=== PATIENT | female | born 1960 | race Caucasian/White ===

== ENCOUNTER 2016-08-26 10:48 | Day surgery (SDC) | payer MEDICARE ==
[~2016-08-26 10:48] MED LIST: DIPRIVAN 200 MG/20 ML IV ONE; Kenalog-40 IM ONE; Sensorcaine 0.25% 10 ML IJ ONE; Xylocaine 1% Vial 30 ML PF IJ ONE
[2016-08-26 13:26] VITALS: BP 124/72; PULSE 68; O2SAT 99
[2016-08-26] MEDS ORDERED: Lactated Ringers 1,000 ML IV SCH (13:30)
--- NOTE | 2016-08-26 16:36 | XRAY ---
Indication: Left SI injection. Intraoperative fluoroscopy was provided for 25 seconds. Single digital spot image submitted for interpretation demonstrates posterior spinal needle with the tip projecting over the left SI joint. Small amount of contrast injected for needle tip placement. Correlate with intraoperative findings/report.
--- NOTE | 2016-08-26 16:42 | XRAY ---
25 seconds fluoro time in surgery for left SI injection.
== END 2016-08-26 14:56 | disposition home or self-care (01) ==
LOC: SDC-PAIN 10:48
PROVIDERS: ATTEND Pain Medicine Interventional Pain Medicine
DX: M46.1 Sacroiliitis, not elsewhere classified (principal); M54.5 Low back pain; M79.1 Myalgia
CPT/HCPCS: 27096; 72020; 77003; J2001; J2704; J3301; Q9967

== ENCOUNTER 2017-02-21 11:51 | Emergency (ER) | payer MEDICARE ==
--- NOTE | 2017-02-21 13:05 | ERPHSYRPT ---
- History of Present Illness Time Seen by Provider: 02/21/17 12:27 Source: patient Patient Subjective Stated Complaint: PT REPORTS SWELLING TO ANKLES ET HANDS- STATES THAT SHE WOKE UP THIS MORNING WITH EYES SWELLING-PT REPORTS WORKING OUTSIDE-DENIES ITCHING Triage Nursing Assessment: PT PINK WARM ET [id number] NOTED-RESP EASY ET NONLABORED AT THIS TIME-NO BLISTERING NOTED-NO COUGH NOTED Physician History: CC: swelling Hx: 56 y/o patient of Dr Carvalho and Scot Clinton. She has fam hx of lupus but she herself tested negative. She has a few days hx of itching, swelling on face and hands and feet. She had worked in garden. No real rash. She has increased small joint pains especially in the hands. Both 2nd toes have some dark discoloration under the nails without known injury. No fever or chills. No fatigue. No chest or abd pain. Normal urination. No specific rash. Timing/Duration: day(s) (few) Allergies/Adverse Reactions: minocycline Allergy (Verified 02/21/17 12:00) Home Medications: Escitalopram Oxalate [Lexapro] 20 mg PO DAILY 10/21/13 [History] Lansoprazole [Prevacid 24Hr] 30 tab PO DAILY 12/23/15 [History] Alosetron HCl [Lotronex] 0.5 mg PO .UNKONWN 06/11/16 [History] Cetirizine HCl [Zyrtec] 10 mg PO .UNKNOWN 06/11/16 [History] Hydrocodone/APAP 10/325 mg [[place] 10/325 MG Tablet] 1 tab PO Q6HPRN PRN [History] Quetiapine Fumarate 25 mg [Seroquel 25 MG] 50 mg PO BID 06/11/16 [History] Ropinirole HCl 1 mg PO HS 06/11/16 [History] Gabapentin [Neurontin] 100 mg PO UD 02/21/17 [History] Hx Tetanus, Diphtheria Vaccination/Date Given: Yes Hx Influenza Vaccination/Date Given: Yes Hx Pneumococcal Vaccination/Date Given: Yes Immunizations Up to Date: Yes - Review of Systems Constitutional: No Fever, No Chills Eyes: No Symptoms Ears, Nose, & Throat: No Symptoms Respiratory: No Cough, No Dyspnea Cardiac: Edema, No Chest Pain Abdominal/Gastrointestinal: No Abdominal Pain, No Vomiting, No Diarrhea Skin: Pruritis, No Rash Neurological: No Focal Weakness, No Parasthesia All Other Systems: Reviewed and Negative - Past Medical History Pertinent Past Medical History: Yes Neurological History: No Pertinent History ENT History: No Pertinent History Cardiac History: Deep Vein Thrombosis Respiratory History: No Pertinent History Endocrine Medical History: Hypothyroidism Musculoskeletal History: Fibromyalgia, Osteoarthritis GI Medical History: Colitis, Crohns Disease, GERD, Irritable Bowel Psycho-Social History: Anxiety, Bipolar, Depression Other Medical History: "ALOT OF STOMACH PROBLEMS" - Past Surgical History Past Surgical History: Yes Gastrointestinal: Appendectomy, Cholecystectomy Female Surgical History: Hysterectomy Other Surgical History: tonsils - Social History Smoking Status: Never smoker Exposure to second hand smoke: No Drug Use: none Patient Lives Alone: No - Female History Hx Now: No - Nursing Vital Signs Nursing Vital Signs: Initial Vital Signs Temperature 97.7 F 02/21/17 12:00 Pulse Rate 80 02/21/17 12:00 Respiratory Rate 20 02/21/17 12:00 Blood Pressure 119/70 02/21/17 12:00 O2 Sat by Pulse Oximetry 97 02/21/17 12:00 Pain Scale Pain Intensity 4 - Physical Exam General Appearance: alert Eye Exam: PERRL/EOMI Ears, Nose, Throat Exam: moist mucous membranes Neck Exam: normal inspection, non-tender, supple Respiratory Exam: normal breath sounds Cardiovascular Exam: regular rate/rhythm Gastrointestinal/Abdomen Exam: soft, No tenderness, No distention Back Exam: normal inspection Extremity Exam: swelling (some swelling of the face, hands and feet), other ( both second toes have some dark discoloration under nails, there is mild redness periungal to suggest irritation?) Neurologic Exam: alert, oriented x 3, cooperative, No motor deficits Skin Exam: warm, dry SpO2 Interpretation: normal SpO2: 98 Oxygen Delivery: Room Air - Course Nursing assessment & vital signs reviewed: Yes Ordered Tests: Active Orders 24 hr Category Date Time Status Clean Catch Urine Specimen STAT Care 02/21/17 12:34 Active CBC W DIFF Stat Lab 02/21/17 12:58 Completed CMP Stat Lab 02/21/17 13:17 Completed Erythrocyte Sedimentation Rate Stat Lab 02/21/17 12:58 Completed UA W/RFX UR CULTURE Stat Lab 02/21/17 12:34 Completed Lab/Rad Data: Laboratory Result Diagrams 02/21/17 12:58 02/21/17 13:17 Laboratory Results 02/21/17 02/21/17 02/21/17 Range/Units 13:17 12:58 12:34 WBC 4.5 (4.0-10.5) K/mm3 RBC 3.52 L (4.1-5.4) M/mm3 Hgb 10.5 L (12.0-16.0) gm/dl Hct 32.8 L (35-47) % MCV 93.2 (78-100) fl MCH 29.8 (26-32) pg MCHC 32.0 (32-36) g/dl RDW 13.9 (11.5-14.0) % Plt Count 228 (150-450) K/mm3 MPV 10.3 H (6-9.5) fl Gran % 61.2 (36.0-66.0) % Lymphocytes % 28.1 (24.0-44.0) % Monocytes % 6.5 (0.0-12.0) % Eosinophils % 4.0 (0.00-5.0) % Basophils % 0.2 (0.0-0.4) % Basophils # 0.01 (0-0.4) ESR 18 (0-20) mm/hr Sodium 141 (136-145) mEq/L Potassium 4.2 (3.5-5.1) mEq/L Chloride 107 (98-107) mEq/L Carbon Dioxide 25.6 (21-32) mEq/L Anion Gap 12.8 (5-15) MEQ/L BUN 10 (9-20) mg/dL Creatinine 0.75 (0.55-1.30) mg/dl Estimated GFR > 60 ML/MIN Glucose 93 (70-110) MG/DL Calcium 8.4 L (8.5-10.1) mg/dL Total Bilirubin 0.20 (0.2-1.0) mg/dL AST 21 (15-37) U/L ALT 21 (12-78) U/L Alkaline Phosphatase 92 (46-116) U/L Serum Total Protein 5.9 L (6.4-8.2) gm/dL Albumin 3.2 L (3.4-5.0) g/dL Ur Collection Type CLEAN CATCH Urine Color YELLOW (YELLOW) Urine Appearance CLEAR (CLEAR) Urine pH 8.0 (5-6) Ur Specific [place] 1.010 (1.005-1.025) Urine Protein NEGATIVE (Negative) Urine Ketones NEGATIVE (NEGATIVE) Urine Blood NEGATIVE (0-5) Jake/ul Urine Nitrite NEGATIVE (NEGATIVE) Urine Bilirubin NEGATIVE (NEGATIVE) Urine Urobilinogen NORMAL (0-1) mg/dL Ur Leukocyte Esterase NEGATIVE (NEGATIVE) Urine Glucose NEGATIVE (NEGATIVE) mg/dL Specimen Received [id number] 1300 - Progress Progress Note: 02/21/17 14:25 The patient is stable, ambulating in ER. She has labs that are ok. Will try prednisone and atarax. Unsure whether contact derm? Counseled pt/family regarding: lab results, diagnosis, need for follow-up - Departure Time of Disposition: 14:26 Departure Disposition: Home Clinical Impression: Contact dermatitis Qualifiers: Contact dermatitis type: unspecified Contact dermatitis trigger: unspecified trigger Qualified Code(s): L25.9 - Unspecified contact dermatitis, unspecified cause Condition: Stable Critical Care Time: No Referrals: ASHVIN CARVALHO MD [Primary Care Provider] - SCOT CLINTON MD [NON-STAFF PHY W/O PRIVILEGES] - Instructions: Contact Dermatitis Additional Instructions: Rx hydroxyzine- no driving. Rx prednisone. Follow up with Dr Carvalho next week. Prescriptions: Hydroxyzine HCl 25 mg [Atarax 25 mg] 25 mg PO Q6H PRN PRN #20 tablet PRN Reason: Itching Prednisone 10 mg [Deltasone 10 mg] 0 mg PO UD #32 tablet
[2017-02-21 13:08] LABS: Collection Type CLEAN CATCH
[2017-02-21 13:09] LABS: ADD URINE CULTURE? NO (NO); Bilirubin NEGATIVE (NEGATIVE); Blood NEGATIVE Ery/ul (0-5); COMPLETE URINE MICROSCOPIC? NO; Glucose NEGATIVE (NEGATIVE); Leukocyte Esterase NEGATIVE (NEGATIVE)
[2017-02-21 13:20] LABS: BASOPHIL % 0.2 % (0.0-0.4); Granulocytes % 61.2 % (36.0-66.0); Lymphocytes % 28.1 % (24.0-44.0); Mean Cell Volume 93.2 fl (78-100); Mean Corpuscular Hemoglobin 29.8 pg (26-32); Mean Platelet Volume 10.3 fl (6-9.5); Monocytes % 6.5 % (0.0-12.0); Platelet Count 228 K/mm3 (150-450); Red Blood Count 3.52 M/mm3 (4.1-5.4); Red Cell Distribution Width 13.9 % (11.5-14.0); White Blood Count 4.5 K/mm3 (4.0-10.5)
[2017-02-21 13:49] VITALS: BP 120/78
[2017-02-21 13:56] LABS: ALBUMIN 3.2 g/dL (3.4-5.0); ALKALINE PHOSPHATASE 92 U/L (46-116); ANION GAP 12.8 MEQ/L (5-15); BLOOD UREA NITROGEN 10 mg/dL (9-20); CHLORIDE 107 mEq/L (98-107); Carbon Dioxide 25.6 mEq/L (21-32); Glucose 93 MG/DL (70-110); Potassium 4.2 mEq/L (3.5-5.1); SGOT/AST 21 U/L (15-37); SGPT/ALT 21 U/L (12-78); SODIUM 141 mEq/L (136-145); Total Protein 5.9 gm/dL (6.4-8.2)
[2017-02-21 14:10] VITALS: PULSE 67
[2017-02-21 14:24] LABS: Erythrocyte Sedimentation Rate 18 mm/hr (0-20)
[2017-02-21 14:28] VITALS: O2SAT 98
== END 2017-02-21 14:31 | disposition home or self-care (01) ==
LOC: ED 11:51
DX: L25.9 Unspecified contact dermatitis, unspecified cause (principal)
CPT/HCPCS: 36415; 80053; 81002; 85025; 85652; 99283

== ENCOUNTER 2017-11-17 11:11 | Day surgery (SDC) | payer MEDICARE ==
[2017-11-17] MEDS ORDERED: Marcaine 0.5% SDV 10 ML IJ ONE (11:12)
[2017-11-17] MEDS ORDERED: LIDOCAINE HCL 2% 100 MG/5 ML IJ ONE (11:12)
[2017-11-17] MEDS ORDERED: DEXAMETHASONE 10 MG/ML VIAL PF IJ ONE (11:12)
[2017-11-17] MEDS ORDERED: Xylocaine-Mpf 2 ML IJ ONE (11:12)
--- NOTE | 2017-11-17 14:03 | XRAY ---
Indication: Left SI joint injection. Intraoperative fluoroscopy was provided for 18 seconds. 2 digital spot images submitted for interpretation demonstrates single posterior spinal needle tip projecting over the inferior left SI joint. Correlate with intraoperative findings/report.
--- NOTE | 2017-11-17 15:08 | XRAY ---
18 seconds fluoroscopy time in surgery for left SI joint injection.
--- NOTE | 2017-11-18 09:15 | OP ---
DATE OF PROCEDURE: 11/17/2017 1329 SURGEON: Jessica Boles D.O. PREOPERATIVE DIAGNOSES: Degenerative changes of Sacroiliac joint (SIJ), lower back pain. POSTOPERATIVE DIAGNOSES: Degenerative changes of Sacroiliac joint (SIJ), lower back pain. PROCEDURES PERFORMED: Left sacroiliac joint steroid injection under fluoroscopic guidance. DESCRIPTION OF PROCEDURE: The patient was taken to the operating room and laid in the prone position on the table. The skin over the injection site was prepped and draped in sterile fashion. Under fluoroscope bony anatomy at the targeted injection site was visualized. Induction agent was given as per anesthesia while vital signs were monitored. Local anesthetic agent was introduced to anesthetize the skin in the subcutaneous tissue through injection site. Under fluoroscopic guidance a standard spinal needle was advanced into the target SI joint through an oblique approach and 1 cc of preservative Decadron was injected into the SI joint accordingly. While the needle was being removed normal saline was simultaneously infiltrated to avoid sterile needle tract. Skin was cleansed with alcohol and then a bandage was applied. No complications or adverse consequences were observed. The patient was returned to the holding area until stabilized before discharge to home. After the procedure the pain level was 0 out of 10, before the procedure the pain level was 5 out of 10. The patient will be followed up within ten days after the injection for reevaluation.
== END 2017-11-17 14:05 | disposition home or self-care (01) ==
LOC: SDC-PAIN 11:11
PROVIDERS: ATTEND Internal Medicine
DX: M46.1 Sacroiliitis, not elsewhere classified (principal); M51.36 Other intervertebral disc degeneration, lumbar region; M62.838 Other muscle spasm; Z79.891 Long term (current) use of opiate analgesic
CPT/HCPCS: 27096; 72100; 77003; G0260; J1100

== ENCOUNTER 2017-11-21 11:02 | Emergency (ER) | payer MEDICARE ==
[2017-11-21] MEDS ORDERED: Sodium Chloride 0.9% 1000 ML 1,000 ML IV STA (11:41)
[2017-11-21] MEDS ORDERED: Zofran 4 MG/2 ML VIAL IV ONE (11:41)
[2017-11-21] MEDS ORDERED: TORAdol 30 mg Injection IV ONE (11:41)
[2017-11-21] MEDS ORDERED: Sodium Chloride 0.9% 1000 ML 1,000 ML ONE (11:45)
[2017-11-21] MEDS ORDERED: TORAdol 30 mg Injection ONE (11:45)
[2017-11-21] MEDS ORDERED: Zofran 4 MG/2 ML VIAL ONE (11:45)
--- NOTE | 2017-11-21 11:45 | ERPHSYRPT ---
- History of Present Illness Time Seen by Provider: 11/21/17 11:33 Historian: patient Exam Limitations: no limitations Patient Subjective Stated Complaint: patient urinating frequently pressure when urinating has taken 2 boxes over thwe counter AZO since wednesday Triage Nursing Assessment: patent gait is steady, able to ambulate by self, skin warm dry and intact, lung sounds clear, pupils perrla2, pulses equal bialteral radius. no other [id number] noted. back tedner to palpation on back. Physician History: Pt started c/o diffuse lower abdominal pain, radiating to her back, urinary frequency for 4 days. She is nauseated, denies vomiting, fevr, chills, other complaints. Timing/Duration: day(s) (4) Activities at Onset: none Quality: cramping Abdominal Pain Onset Location: periumbilical, suprapubic Pain Radiation: back Severity of Pain-Max: moderate Severity of Pain-Current: moderate Modifying Factors: Improves With: nothing Associated Symptoms: denies symptoms Previous symptoms: no prior history Allergies/Adverse Reactions: minocycline Allergy (Verified 02/21/17 12:00) Home Medications: Lansoprazole [Prevacid 24Hr] 30 tab PO DAILY 12/23/15 [History] Alosetron HCl [Lotronex] 0.5 mg PO .UNKONWN 06/11/16 [History] Cetirizine HCl [Zyrtec] 10 mg PO DAILY PRN PRN 06/11/16 [History] Hydrocodone/APAP 10/325 mg [[place] 10/325 MG Tablet] 1 tab PO Q8HPRN PRN [History] Quetiapine Fumarate 25 mg [Seroquel 25 MG] 50 mg PO BID 06/11/16 [History] Ropinirole HCl 1 mg PO HS 06/11/16 [History] Acyclovir 200 mg Cap [Zovirax 200 mg ] 400 mg PO DAILY 09/14/17 [History] Alendronate Sodium 70 mg [Fosamax 70 MG] 70 mg PO WEEKLY 09/14/17 [History ] Meclizine HCl 25 mg [Antivert 25 mg] 25 mg PO DAILY 09/14/17 [History] Celecoxib [Celebrex] 200 mg PO DAILY 11/09/17 [History] Escitalopram Oxalate [Lexapro] 20 mg PO DAILY 11/09/17 [History] Hx Tetanus, Diphtheria Vaccination/Date Given: Yes Hx Influenza Vaccination/Date Given: Yes Hx Pneumococcal Vaccination/Date Given: Yes Immunizations Up to Date: Yes - Review of Systems Constitutional: No Symptoms Abdominal/Gastrointestinal: Abdominal Pain, Nausea Genitourinary Symptoms: Frequency All Other Systems: Reviewed and Negative - Past Medical History Pertinent Past Medical History: Yes Neurological History: No Pertinent History ENT History: No Pertinent History Cardiac History: Deep Vein Thrombosis Respiratory History: No Pertinent History Endocrine Medical History: Hypothyroidism Musculoskeletal History: Fibromyalgia, Osteoarthritis GI Medical History: Colitis, Crohns Disease, GERD, Irritable Bowel Psycho-Social History: Anxiety, Bipolar, Depression Other Medical History: "ALOT OF STOMACH PROBLEMS" - Past Surgical History Past Surgical History: Yes Gastrointestinal: Appendectomy, Cholecystectomy Female Surgical History: Hysterectomy Other Surgical History: tonsils - Social History Smoking Status: Never smoker Exposure to second hand smoke: No Drug Use: none Patient Lives Alone: Yes - Female History Hx Now: No - Nursing Vital Signs Nursing Vital Signs: Initial Vital Signs Temperature 98.2 F 11/21/17 11:03 Pulse Rate 88 11/21/17 11:03 Respiratory Rate 18 11/21/17 11:03 Blood Pressure 129/63 11/21/17 11:03 O2 Sat by Pulse Oximetry 97 11/21/17 11:03 Pain Scale Pain Intensity 5 - Physical Exam General Appearance: no apparent distress Eye Exam: eyes nml inspection Ears, Nose, Throat Exam: normal ENT inspection Neck Exam: normal inspection, non-tender, supple Respiratory Exam: normal breath sounds, lungs clear, No chest tenderness Cardiovascular Exam: regular rate/rhythm, normal heart sounds, normal peripheral pulses, No murmur Gastrointestinal/Abdomen Exam: soft, normal bowel sounds, tenderness (diffuse), No distention, No mass, No guarding, No ecchymosis, No pulsatile mass, No rebound, No hernia Back Exam: normal inspection, CVA tenderness (bilateral) Extremity Exam: normal inspection Neurologic Exam: alert, oriented x 3 Skin Exam: normal color, warm, dry Lymphatic Exam: No adenopathy SpO2 Interpretation: normal SpO2: 97 Oxygen Delivery: Room Air - Course Nursing assessment & vital signs reviewed: Yes - CT Exams Abdomen/Pelvis CT Interpretation: Negative, Tele-radiologist Report Ordered Tests: Active Orders 24 hr Category Date Time Status Clean Catch Urine Specimen STAT Care 11/21/17 11:24 Active IV Insertion STAT Care 11/21/17 11:24 Active ABDOMEN AND PELVIS W/0 CONTRAS [CT] Stat Exams 11/21/17 11:41 Taken CBC W DIFF Stat Lab 11/21/17 11:30 Completed CMP Stat Lab 11/21/17 11:30 Completed CULTURE,URINE Stat Lab 11/21/17 11:30 Received LIPASE Stat Lab 11/21/17 11:30 Completed Lactic Acid Stat Lab 11/21/17 11:41 Completed UA W/ MICROSCOPIC Stat Lab 11/21/17 11:30 Completed Medication Summary Generic Name Dose Route Start Last Admin Trade Name Freq PRN Reason Stop Dose Admin Ceftriaxone Sodium/Dextrose 1 g in 50 mls @ 100 mls/hr 11/21/17 12:42 Rocephin 1 Gm-D5w 50 Ml Bag IV 11/21/17 13:11 STAT STA Discontinued Medications Generic Name Dose Route Start Last Admin Trade Name Freq PRN Reason Stop Dose Admin Sodium Chloride 1,000 mls @ 999 mls/hr 11/21/17 11:41 11/21/17 11:48 Sodium Chloride 0.9% 1000 Ml IV 11/21/17 12:41 999 mls/hr .Q1H1M STA Administration Sodium Chloride Confirm 11/21/17 11:45 Sodium Chloride 0.9% 1000 Ml Administered 11/21/17 11:46 Dose 1,000 mls @ ud .ROUTE .STK-MED ONE Ketorolac Tromethamine 30 mg 11/21/17 11:41 11/21/17 11:49 Toradol 30 Mg Injection IV 11/21/17 11:42 30 mg STAT ONE Administration Ketorolac Tromethamine Confirm 11/21/17 11:45 Toradol 30 Mg Injection Administered 11/21/17 11:46 Dose 30 mg .ROUTE .STK-MED ONE Ondansetron HCl 4 mg 11/21/17 11:41 11/21/17 11:49 Zofran 4 Mg/2 Ml Vial IV 11/21/17 11:42 4 mg STAT ONE Administration Ondansetron HCl Confirm 11/21/17 11:45 Zofran 4 Mg/2 Ml Vial Administered 11/21/17 11:46 Dose 4 mg .ROUTE .STK-MED ONE Lab/Rad Data: Laboratory Result Diagrams 11/21/17 11:30 11/21/17 11:30 Laboratory Results 11/21/17 11/21/17 11/21/17 Range/Units 11:41 11:30 11:30 WBC 6.5 (4.0-10.5) K/mm3 RBC 4.20 (4.1-5.4) M/mm3 Hgb 12.9 (12.0-16.0) gm/dl Hct 39.1 (35-47) % MCV 93.1 (78-100) fl MCH 30.7 (26-32) pg MCHC 33.0 (32-36) g/dl RDW 12.6 (11.5-14.0) % Plt Count 232 (150-450) K/mm3 MPV 11.8 H (6-9.5) fl Gran % 62.9 (36.0-66.0) % Eos # (Auto) 0.15 (0-0.5) Absolute Lymphs (auto) 1.83 (1.0-4.6) Absolute Monos (auto) 0.41 (0.0-1.3) Lymphocytes % 28.2 (24.0-44.0) % Monocytes % 6.3 (0.0-12.0) % Eosinophils % 2.3 (0.00-5.0) % Basophils % 0.3 (0.0-0.4) % Absolute Granulocytes 4.07 (1.4-6.9) Basophils # 0.02 (0-0.4) Sodium 140 (137-145) mmol/L Potassium 4.4 (3.5-5.1) mmol/L Chloride 105 (98-107) mmol/L Carbon Dioxide 24 (22-30) mmol/L Anion Gap 15.5 H (5-15) MEQ/L BUN 11 (7-17) mg/dL Creatinine 0.66 (0.52-1.04) mg/dL Estimated GFR > 60.0 ML/MIN Glucose 87 (74-106) mg/dL Lactic Acid 0.6 (0.4-2.0) Calcium 9.6 (8.4-10.2) mg/dL Total Bilirubin 0.30 (0.2-1.3) mg/dL AST 27 (14-36) U/L ALT 24 (0-35) U/L Alkaline Phosphatase 95 (38-126) U/L Serum Total Protein 7.4 (6.3-8.2) g/dL Albumin 4.4 (3.5-5.0) g/dL Lipase 60 (23-300) U/L Ur Collection Type Urine Color (YELLOW) Urine Appearance (CLEAR) Urine pH (5-6) Ur Specific [place] (1.005-1.025) Urine Protein (Negative) Urine Ketones (NEGATIVE) Urine Blood (0-5) Jake/ul Urine Nitrite (NEGATIVE) Urine Bilirubin (NEGATIVE) Urine Urobilinogen (0-1) mg/dL Ur Leukocyte Esterase (NEGATIVE) Urine Microscopic RBC (0-2) /HPF Urine Microscopic WBC (0-5) /HPF Ur Epithelial Cells (FEW) /HPF Urine Bacteria (NEGATIVE) /HPF Urine Culture Reflexed (NO) Urine Glucose (NEGATIVE) mg/dL Specimen Received 11/21/17 Range/Units 11:30 WBC (4.0-10.5) K/mm3 RBC (4.1-5.4) M/mm3 Hgb (12.0-16.0) gm/dl Hct (35-47) % MCV (78-100) fl MCH (26-32) pg MCHC (32-36) g/dl RDW (11.5-14.0) % Plt Count (150-450) K/mm3 MPV (6-9.5) fl Gran % (36.0-66.0) % Eos # (Auto) (0-0.5) Absolute Lymphs (auto) (1.0-4.6) Absolute Monos (auto) (0.0-1.3) Lymphocytes % (24.0-44.0) % Monocytes % (0.0-12.0) % Eosinophils % (0.00-5.0) % Basophils % (0.0-0.4) % Absolute Granulocytes (1.4-6.9) Basophils # (0-0.4) Sodium (137-145) mmol/L Potassium (3.5-5.1) mmol/L Chloride (98-107) mmol/L Carbon Dioxide (22-30) mmol/L Anion Gap (5-15) MEQ/L BUN (7-17) mg/dL Creatinine (0.52-1.04) mg/dL Estimated GFR ML/MIN Glucose (74-106) mg/dL Lactic Acid (0.4-2.0) Calcium (8.4-10.2) mg/dL Total Bilirubin (0.2-1.3) mg/dL AST (14-36) U/L ALT (0-35) U/L Alkaline Phosphatase (38-126) U/L Serum Total Protein (6.3-8.2) g/dL Albumin (3.5-5.0) g/dL Lipase (23-300) U/L Ur Collection Type VOID Urine Color YELLOW (YELLOW) Urine Appearance CLOUDY (CLEAR) Urine pH 8.0 (5-6) Ur Specific [place] 1.010 (1.005-1.025) Urine Protein NEGATIVE (Negative) Urine Ketones NEGATIVE (NEGATIVE) Urine Blood 5-10 (0-5) Jake/ul Urine Nitrite POSITIVE (NEGATIVE) Urine Bilirubin NEGATIVE (NEGATIVE) Urine Urobilinogen 4 (0-1) mg/dL Ur Leukocyte Esterase 2+ (NEGATIVE) Urine Microscopic RBC 5-10 (0-2) /HPF Urine Microscopic WBC >100 (0-5) /HPF Ur Epithelial Cells FEW (FEW) /HPF Urine Bacteria MANY (NEGATIVE) /HPF Urine Culture Reflexed YES (NO) Urine Glucose NEGATIVE (NEGATIVE) mg/dL Specimen Received 11/21/17 1120 - Progress Progress: improved Progress Note: 11/21/17 13:06 Patient has been afebrile, stable, did not vomit, feels better, I informed her about the test results, she was given 1g Rocephine iv, and being discharged with instructions to rest x 2-3 days, drink plenty of fluids, follow up with her doctor in 3-4 days, return if severe pain, vomiting or fever> 102 F! She was given Keflex 500mg PO QID x 7 days. - Departure Time of Disposition: 13:07 Departure Disposition: Home Clinical Impression: Pyelonephritis Condition: Stable Critical Care Time: No Referrals: ASHVIN CARVALHO MD [Primary Care Provider] - Additional Instructions: Rest x 3-4 days, drink plenty of fluids, return if severe pain, vomiting, fever > 102 F, follow up with your physician in 3-4 days! Prescriptions: Cephalexin Mh 500 mg [Keflex 500 mg] 500 mg PO Q6H #28 capsule
[2017-11-21 12:00] LABS: BASOPHIL % 0.3 % (0.0-0.4); Basophil (Absolute #) 0.02 (0-0.4); Eosinophil % 2.3 % (0.00-5.0); Eosinophil (Absolute #) 0.15 (0-0.5); Granulocyte Absolute (ANC) 4.07 (1.4-6.9); Granulocytes % 62.9 % (36.0-66.0); Hematocrit 39.1 % (35-47); Hemoglobin 12.9 gm/dl (12.0-16.0); Lymphocyte (Absolute #) 1.83 (1.0-4.6); Lymphocytes % 28.2 % (24.0-44.0); Mean Cell Volume 93.1 fl (78-100); Mean Corpuscular Hemoglobin 30.7 pg (26-32); Mean Platelet Volume 11.8 fl (6-9.5); Monocyte (Absolute #) 0.41 (0.0-1.3); Monocytes % 6.3 % (0.0-12.0); Platelet Count 232 K/mm3 (150-450); Red Cell Distribution Width 12.6 % (11.5-14.0); White Blood Count 6.5 K/mm3 (4.0-10.5)
[2017-11-21 12:01] LABS: ALBUMIN 4.4 g/dL (3.5-5.0); ALKALINE PHOSPHATASE 95 U/L (38-126); ANION GAP 15.5 MEQ/L (5-15); BLOOD UREA NITROGEN 11 mg/dL (7-17); CHLORIDE 105 mmol/L (98-107); Calcium 9.6 mg/dL (8.4-10.2); Carbon Dioxide 24 mmol/L (22-30); Creatinine 1 0.66 mg/dL (0.52-1.04); Glucose 87 mg/dL (74-106); LIPASE 60 U/L (23-300); Potassium 4.4 mmol/L (3.5-5.1); SGOT/AST 27 U/L (14-36); SGPT/ALT 24 U/L (0-35); SODIUM 140 mmol/L (137-145); Total Protein 7.4 g/dL (6.3-8.2)
[2017-11-21 12:12] LABS: Appearance CLOUDY (CLEAR); Bilirubin NEGATIVE (NEGATIVE); Glucose NEGATIVE (NEGATIVE); Ketones NEGATIVE (NEGATIVE); Leukocyte Esterase 2+ (NEGATIVE); Nitrite POSITIVE (NEGATIVE); Protein,Urine Dip NEGATIVE (Negative); Urobilinogen 4 mg/dL (0-1)
[2017-11-21 12:15] LABS: Bacteria MANY /HPF (NEGATIVE); Epithelial Cells FEW /HPF (FEW); WBC >100 /HPF (0-5)
[2017-11-21] MEDS ORDERED: ROCEPHIN 1 Gm-D5w 50 ml Bag** 1 G/50 ML IVPB IV STA (12:42)
[2017-11-21] MEDS ORDERED: ROCEPHIN 1 Gm-D5w 50 ml Bag** 1 G/50 ML IVPB IV ONE (13:06)
[2017-11-21 13:25] VITALS: O2SAT 98
[2017-11-21 13:49] VITALS: BP 156/72; PULSE 72
--- NOTE | 2017-11-21 19:41 | XRAY ---
Indication: Abdomen and low back pain. Multiple contiguous axial images through the abdomen and pelvis without contrast as ordered. Comparison: May 20, 2011. Lung bases are clear. Heart is not enlarged. Noncontrasted stomach and bowel loops appear nonobstructed. Previous reported appendectomy, cholecystectomy, and hysterectomy. No free fluid/air. Remaining liver, pancreas, spleen, adrenal glands, kidneys, ureters, bladder, and aorta appear unremarkable for noncontrast exam. Osseous structures intact. Impression: CT abdomen/pelvis without contrast exam is again negative. Comment: Preliminary interpretation was made by C. No discrepancy. CTDI 10.06
== END 2017-11-21 13:53 | disposition home or self-care (01) ==
LOC: ED 11:02
DX: N12 Tubulo-interstitial nephritis, not specified as acute or chronic (principal); R35.0 Frequency of micturition; R10.30 Lower abdominal pain, unspecified; Z79.899 Other long term (current) drug therapy
CPT/HCPCS: 36000; 36415; 74176; 80053; 81000; 83605; 83690; 85025; 87077; 87086; 87186; 96360; 96365; 96374; 96375; 96376; 99284; J0696; J1885; J2405

== ENCOUNTER 2018-05-20 06:40 | Emergency (ER) | payer MEDICARE ==
--- NOTE | 2018-05-20 07:21 | ERPHSYRPT ---
- History of Present Illness Time Seen by Provider: 05/20/18 07:00 Source: patient Exam Limitations: no limitations Patient Subjective Stated Complaint: Cough Triage Nursing Assessment: Patient ambulated into ER and transferred self into bed. Patient complains of losing her voice Wednesday night then started to cough on Wednesday. Patient states she is having trouble lying flat and causing increased cough and SOB. Patient lungs noted to be clear a/p john. O2 96% on room air. Patient denies pain or discomfort. Physician History: 57 y/o white female presents with first losing voice then coughing with some soa for 3 days. similar sx in past was dx with pneumonia. denies cp and denies fever. pt does not smoke and is not exposed to smoke. pt has nkda. pt not on any medications Timing/Duration: day(s) (3) Cough Quality/Degree: mild, dry cough Possible Cause: frequent episodes Modifying Factors: Improves With: coughing, deep breath Associated Symptoms: cough, shortness of breath, other (laryngitis), No fever, No chills, No chest pain/soreness, No wheezing International travel in last 2 weeks: No Allergies/Adverse Reactions: minocycline Allergy (Verified 05/20/18 06:52) Home Medications: Lansoprazole [Prevacid 24Hr] 30 tab PO DAILY 12/23/15 [History] Alosetron HCl [Lotronex] 0.5 mg PO .UNKONWN 06/11/16 [History] Cetirizine HCl [Zyrtec] 10 mg PO DAILY PRN PRN 06/11/16 [History] Hydrocodone/APAP 10/325 mg [[place] 10/325 MG Tablet] 1 tab PO Q8HPRN PRN [History] Quetiapine Fumarate 25 mg [Seroquel 25 MG] 50 mg PO BID 06/11/16 [History] Ropinirole HCl 1 mg PO HS 06/11/16 [History] Acyclovir 200 mg Cap [Zovirax 200 mg ] 400 mg PO DAILY 09/14/17 [History] Alendronate Sodium 70 mg [Fosamax 70 MG] 70 mg PO WEEKLY 09/14/17 [History ] Celecoxib [Celebrex] 200 mg PO DAILY 11/09/17 [History] Escitalopram Oxalate [Lexapro] 20 mg PO DAILY 11/09/17 [History] Gabapentin [Neurontin] 300 mg PO HS 12/06/17 [History] Hx Tetanus, Diphtheria Vaccination/Date Given: Yes Hx Influenza Vaccination/Date Given: No Hx Pneumococcal Vaccination/Date Given: No Immunizations Up to Date: Yes - Review of Systems Constitutional: No Symptoms, No Fever, No Chills Eyes: No Symptoms, No Eye Pain Ears, Nose, & Throat: No Symptoms, No Ear Pain, No Nose Congestion, No Mouth Pain, No Painful Swallowing Respiratory: Cough, No Dyspnea, No Stridor, No Wheezing Cardiac: No No Symptoms, No Chest Pain, No Palpitations, No Syncope Abdominal/Gastrointestinal: No Symptoms, No Abdominal Pain, No Nausea, No Vomiting, No Diarrhea Genitourinary Symptoms: No Symptoms, No Dysuria, No Hematuria Musculoskeletal: No Symptoms, No Back Pain, No Neck Pain, No Fall, No Injury Skin: No Symptoms Neurological: No Symptoms Psychological: No Symptoms Endocrine: No Symptoms Hematologic/Lymphatic: No Symptoms Immunological/Allergic: No Symptoms All Other Systems: Reviewed and Negative - Past Medical History Pertinent Past Medical History: Yes Neurological History: No Pertinent History ENT History: No Pertinent History Cardiac History: Deep Vein Thrombosis Respiratory History: No Pertinent History Endocrine Medical History: Hypothyroidism Musculoskeletal History: Fibromyalgia, Osteoarthritis GI Medical History: Colitis, Crohns Disease, GERD, Irritable Bowel History: No Pertinent History Psycho-Social History: Anxiety, Bipolar, Depression Female Reproductive Disorders: No Pertinent History Other Medical History: "ALOT OF STOMACH PROBLEMS" - Past Surgical History Past Surgical History: Yes Gastrointestinal: Appendectomy, Cholecystectomy Female Surgical History: Hysterectomy Other Surgical History: tonsils - Social History Smoking Status: Never smoker Exposure to second hand smoke: No Drug Use: none Patient Lives Alone: Yes - Female History Hx Last Menstrual Period: Total Hysterectomy Hx Now: No - Nursing Vital Signs Nursing Vital Signs: Initial Vital Signs Temperature 97.9 F 05/20/18 06:43 Respiratory Rate 18 05/20/18 06:43 O2 Sat by Pulse Oximetry 97 05/20/18 06:43 Pain Scale Pain Intensity 0 - Physical Exam General Appearance: mild distress, alert, anxiety Eye Exam: PERRL/EOMI, eyes nml inspection Ears, Nose, Throat Exam: normal ENT inspection, pharynx normal, moist mucous membranes, other (laryngitis) Neck Exam: normal inspection, non-tender, supple, full range of motion Respiratory Exam: normal breath sounds, lungs clear, airway intact, No chest tenderness, No respiratory distress, No accessory muscle use, No rhonchi, No wheezing, No stridor Cardiovascular Exam: regular rate/rhythm, normal heart sounds, normal peripheral pulses Gastrointestinal/Abdomen Exam: soft, normal bowel sounds, tenderness Pelvic Exam: not done Rectal Exam: not done Back Exam: normal inspection, normal range of motion, No CVA tenderness, No vertebral tenderness Extremity Exam: normal inspection, normal range of motion, pelvis stable Neurologic Exam: alert, oriented x 3, cooperative, fruit and vegetable classer II-XII nml as tested Skin Exam: normal color, warm, dry Lymphatic Exam: No adenopathy SpO2 Interpretation: normal SpO2: 95 Oxygen Delivery: Room Air - Course Nursing assessment & vital signs reviewed: Yes - Progress Progress: unchanged Air Movement: good Blood Culture(s) Obtained: No Antibiotics given: Yes Counseled pt/family regarding: diagnosis, need for follow-up - Departure Time of Disposition: 07:27 Departure Disposition: Home Clinical Impression: Bronchitis, Laryngitis Condition: Stable Critical Care Time: No Referrals: ASHVIN CARVALHO MD [Primary Care Provider] - Additional Instructions: drink plenty of fluids. follow up with primary doctor for further management Prescriptions: Albuterol 8 gm Mdi Hfa [Ventolin Hfa MDI] 8 gm IH Q4H #1 [email or web address] Azithromycin 250 mg [Zithromax 250 MG TABLET] 250 mg PO ZPACK #6 tablet Hydrocodone Bit/Acetaminophen [Hydrocodone-Acetaminophen Soln] 10 ml PO Q6H # 120 ml Prednisone 10 mg [Deltasone 10 mg] 10 mg PO TID #12 tablet
[2018-05-20] MEDS ORDERED: solu-MEDROL 125 MG IM ONE (07:32)
[2018-05-20] MEDS ORDERED: Rocephin 1000 MG INJ IM ONE (07:32)
[2018-05-20] MEDS ORDERED: Rocephin 1000 MG INJ ONE (07:44)
[2018-05-20] MEDS ORDERED: XYLOCAINE 1% HCL 20 ML MDV ONE (07:44)
[2018-05-20] MEDS ORDERED: solu-MEDROL 125 MG ONE (07:44)
[2018-05-20 08:01] VITALS: BP 132/74; PULSE 68; O2SAT 98
== END 2018-05-20 08:24 | disposition home or self-care (01) ==
LOC: ED 06:40
DX: J20.9 Acute bronchitis, unspecified (principal); J04.0 Acute laryngitis; Z79.899 Other long term (current) drug therapy; Z79.891 Long term (current) use of opiate analgesic
CPT/HCPCS: 96372; 99284; J0696; J2930

== ENCOUNTER 2018-05-24 09:27 | Emergency (ER) | payer MEDICARE ==
--- NOTE | 2018-05-24 09:57 | ERPHSYRPT ---
- History of Present Illness Time Seen by Provider: 05/24/18 09:45 Source: patient Physician History: 57 y/o right handed white female presents with less than 24 hour right wrist pain. no fall or injury. however, pt did begin painting her toney at home last pm and kept painting despite pain. pt did not take anything to help her pain. pt has norco at home. she just completed course of steroids for tx of bronchitis. Occurred: yesterday Method of Injury: other (overuse painting) Quality: aching Severity of Pain-Max: mild Severity of Pain-Current: mild Extremities Pain Location: wrist: right Modifying Factors: Improves With: movement (worsens) Allergies/Adverse Reactions: minocycline Allergy (Verified 05/24/18 09:39) Home Medications: Lansoprazole [Prevacid 24Hr] 30 tab PO DAILY 12/23/15 [History] Alosetron HCl [Lotronex] 0.5 mg PO .UNKONWN 06/11/16 [History] Cetirizine HCl [Zyrtec] 10 mg PO DAILY PRN PRN 06/11/16 [History] Hydrocodone/APAP 10/325 mg [[place] 10/325 MG Tablet] 1 tab PO Q8HPRN PRN [History] Quetiapine Fumarate 25 mg [Seroquel 25 MG] 50 mg PO BID 06/11/16 [History] Ropinirole HCl 1 mg PO HS 06/11/16 [History] Acyclovir 200 mg Cap [Zovirax 200 mg ] 400 mg PO DAILY 09/14/17 [History] Alendronate Sodium 70 mg [Fosamax 70 MG] 70 mg PO WEEKLY 09/14/17 [History ] Celecoxib [Celebrex] 200 mg PO DAILY 11/09/17 [History] Escitalopram Oxalate [Lexapro] 20 mg PO DAILY 11/09/17 [History] Gabapentin [Neurontin] 300 mg PO HS 12/06/17 [History] Hx Tetanus, Diphtheria Vaccination/Date Given: Yes Hx Influenza Vaccination/Date Given: No Hx Pneumococcal Vaccination/Date Given: No - Review of Systems Constitutional: No Symptoms Eyes: No Symptoms Ears, Nose, & Throat: No Symptoms Respiratory: No Symptoms Cardiac: No Symptoms Abdominal/Gastrointestinal: No Symptoms Genitourinary Symptoms: No Symptoms Musculoskeletal: Other (right wrist pain with abduction) Skin: No Symptoms Neurological: No Symptoms Psychological: No Symptoms Endocrine: No Symptoms Hematologic/Lymphatic: No Symptoms Immunological/Allergic: No Symptoms All Other Systems: Reviewed and Negative - Past Medical History Pertinent Past Medical History: Yes Neurological History: No Pertinent History ENT History: No Pertinent History Cardiac History: Deep Vein Thrombosis Respiratory History: No Pertinent History Endocrine Medical History: Hypothyroidism Musculoskeletal History: Fibromyalgia, Osteoarthritis GI Medical History: Colitis, Crohns Disease, GERD, Irritable Bowel History: No Pertinent History Psycho-Social History: Anxiety, Bipolar, Depression Female Reproductive Disorders: No Pertinent History Other Medical History: "ALOT OF STOMACH PROBLEMS" - Past Surgical History Past Surgical History: Yes Gastrointestinal: Appendectomy, Cholecystectomy Female Surgical History: Hysterectomy Other Surgical History: tonsils - Social History Smoking Status: Never smoker Exposure to second hand smoke: No Drug Use: none Patient Lives Alone: Yes - Nursing Vital Signs Nursing Vital Signs: Initial Vital Signs Temperature 98 F 05/24/18 09:34 Pulse Rate 80 05/24/18 09:34 Respiratory Rate 16 05/24/18 09:34 Blood Pressure 120/73 05/24/18 09:34 O2 Sat by Pulse Oximetry 98 05/24/18 09:34 Pain Scale Pain Intensity 8 - Physical Exam General Appearance: no apparent distress, alert, anxiety Eyes, Ears, Nose, Throat Exam: normal ENT inspection, moist mucous membranes Neck Exam: normal inspection, non-tender, supple, full range of motion Cardiovascular/Respiratory Exam: chest non-tender, normal breath sounds Abdominal Exam: non-tender, soft Back Exam: normal inspection, normal range of motion, No CVA tenderness, No vertebral tenderness Shoulder Exam: normal inspection, non-tender, no evidence of injury, normal ROM Elbow/Forearm Exam: normal inspection, non-tender, no evidence of injury, normal ROM Wrist Exam: normal inspection, no evidence of injury, normal ROM, bone tenderness (right wrist), soft tissue tenderness (right wrist) Hand Exam: normal inspection, non-tender, no evidence of injury, normal ROM Neuro/Tendon Exam: normal sensation, normal motor functions, normal tendon functions Mental Status Exam: alert, oriented x 3, cooperative Skin Exam: normal color, warm, dry SpO2 Interpretation: normal Oxygen Delivery: Room Air - Course Nursing assessment & vital signs reviewed: Yes Ordered Tests: Active Orders 24 hr Category Date Time Status WRIST (MIN 3 VIEWS) Stat Exams 05/24/18 09:59 Taken Lab/Rad Data: wrist xray- no acute fx or dislocation - Progress Progress: unchanged, pain not gone completely Counseled pt/family regarding: diagnosis, need for follow-up, rad results - Departure Time of Disposition: 10:27 Departure Disposition: Home Clinical Impression: Right wrist sprain Condition: Stable Critical Care Time: No Referrals: ASHVIN CARVALHO MD [Primary Care Provider] - Additional Instructions: wear splint for comfort. rest for 48 hours. ice pack to site 3 times daily for 48 hours. use your hydrocodone as prescribed. add ibuprofen for pain. follow up with primary doctor for persistent pain
[2018-05-24 10:19] VITALS: BP 120/73; PULSE 80; O2SAT 98
--- NOTE | 2018-05-24 10:29 | XRAY ---
Indication: Pain after painting. Comparison: None 3 views of the right wrist obtained. No bony, articular, or soft tissue abnormalities.
== END 2018-05-24 10:46 | disposition home or self-care (01) ==
LOC: ED 09:27
DX: S63.501A Unspecified sprain of right wrist, initial encounter (principal); X50.0XXA Overexertion from strenuous movement or load, initial encounter
CPT/HCPCS: 73110; 99283; A4570

== ENCOUNTER 2018-09-21 11:53 | Day surgery (SDC) | payer MEDICARE ==
[2018-09-21] MEDS ORDERED: Depo-Medrol 40 MG/ML IM ONE (11:54)
[2018-09-21] MEDS ORDERED: Sodium Chloride 0.9(Preservative Free) 10 ML IJ ONE (11:54)
[2018-09-21] MEDS ORDERED: Xylocaine 1% Vial 30 ML PF IJ ONE (11:54)
[2018-09-21] MEDS ORDERED: DIPRIVAN 200 MG/20 ML IV ONE (11:54)
[2018-09-21] MEDS ORDERED: Ketamine HCl 50 MG/ML IV ONE (11:54)
[2018-09-21] MEDS ORDERED: Lactated Ringers 1,000 ML IV ONE (14:31)
--- NOTE | 2018-09-21 15:02 | XRAY ---
Indication: L4-L5 ILIANA. Intraoperative fluoroscopy was provided for 13 seconds. 2 digital spot images submitted for interpretation demonstrates midline posterior spinal needle tip approximately L4-L5 interspace level. Correlate with intraoperative findings/report.
--- NOTE | 2018-09-21 15:05 | XRAY ---
13 seconds of fluoroscopy was used in surgery for L4-5 ILIANA.
== END 2018-09-21 14:15 | disposition home or self-care (01) ==
LOC: SDC-PAIN 11:53
PROVIDERS: ATTEND Psychiatry & Neurology Pain Medicine
DX: M54.16 Radiculopathy, lumbar region (principal); Z79.899 Other long term (current) drug therapy
CPT/HCPCS: 62323; 72020; 77003; J1030; J2001; J2704; Q9966

== ENCOUNTER 2018-12-17 22:33 | Emergency (ER) | payer MEDICARE ==
[2018-12-17] MEDS ORDERED: Sodium Chloride 0.9% 1000 ML 1,000 ML IV STA (23:00)
[2018-12-17] MEDS ORDERED: Zofran 4 MG/2 ML VIAL IV ONE (23:00)
[2018-12-17] MEDS ORDERED: MORPHINE SULFATE 4 MG INJ IV ONE (23:01)
--- NOTE | 2018-12-17 23:07 | ERPHSYRPT ---
- History of Present Illness Time Seen by Provider: 12/17/18 23:03 Source: patient Exam Limitations: no limitations Patient Subjective Stated Complaint: pt reports she spent a lot of time in the sun the last couple days, says her boss thought she had a heat stroke. reports yesterday afternoon she began to have left side facial numbness and a headache. pt reports nausea vomiting starting today. pt reports it hurts to open her eyes. 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 Physician History: 58-year-old white female arrives with complaint of general myalgias headache vomiting symptoms since yesterday. She apparently has been spending a lot of time outside in the heat she is she states her son thought she was having a sunstroke yesterday. Today she was having some facial numbness several hours ago. Patient is not having trouble speaking or moving her extremities. Past medical history includes DVT, hypothyroidism, fibromyalgia, osteoarthritis , colitis, Crohn's, GERD, or double bowel, anxiety, bipolar depression, stomach problems. Patient does have a history of chronic pain is on Collison 10/325 chronically she states she last took this this morning. Past surgical history includes appendectomy cholecystectomy, hysterectomy, tonsils Timing/Duration: yesterday Severity: moderate Modifying Factors: Worsens With: eating, immobilization, medication, movement, rest, acetaminophen, ibuprofen, nothing Associated Symptoms: nausea, vomiting, headaches, malaise, No abdominal pain, No shortness of breath, No heartburn, No diaphoresis, No cough, No chills, No chest pain, No fever, No loss of appetite, No rash, No syncope, No seizure, No weakness Allergies/Adverse Reactions: minocycline Allergy (Verified 12/17/18 22:58) Home Medications: Lansoprazole [Prevacid 24Hr] 30 tab PO DAILY 12/23/15 [History] Alosetron HCl [Lotronex] 0.5 mg PO .UNKONWN 06/11/16 [History] Cetirizine HCl [Zyrtec] 10 mg PO DAILY PRN PRN 06/11/16 [History] Hydrocodone/APAP 10/325 mg [Collison 10/325 MG Tablet] 1 tab PO Q8HPRN PRN [History] Quetiapine Fumarate 25 mg [Seroquel 25 MG] 50 mg PO BID 06/11/16 [History] Ropinirole HCl 1 mg PO HS 06/11/16 [History] Acyclovir 200 mg Cap [Zovirax 200 mg ] 400 mg PO DAILY 09/14/17 [History] Alendronate Sodium 70 mg [Fosamax 70 MG] 70 mg PO WEEKLY 09/14/17 [History ] Celecoxib [Celebrex] 200 mg PO DAILY 11/09/17 [History] Escitalopram Oxalate [Lexapro] 20 mg PO DAILY 11/09/17 [History] Hx Tetanus, Diphtheria Vaccination/Date Given: No Hx Influenza Vaccination/Date Given: No Hx Pneumococcal Vaccination/Date Given: No Immunizations Up to Date: Yes - Review of Systems Constitutional: No Fever, No Chills Eyes: No Symptoms Ears, Nose, & Throat: No Symptoms Respiratory: No Cough, No Dyspnea Cardiac: No Chest Pain, No Edema, No Syncope Abdominal/Gastrointestinal: No Abdominal Pain, No Nausea, No Vomiting, No Diarrhea Genitourinary Symptoms: No Dysuria Musculoskeletal: Myalgias Skin: No Rash Neurological: Headache, Other (paresthesia to the face several hours ago) Psychological: No Symptoms Endocrine: No Symptoms All Other Systems: Reviewed and Negative - Past Medical History Pertinent Past Medical History: Yes Neurological History: No Pertinent History ENT History: No Pertinent History Cardiac History: Deep Vein Thrombosis Respiratory History: No Pertinent History Endocrine Medical History: Hypothyroidism Musculoskeletal History: Fibromyalgia, Osteoarthritis GI Medical History: Colitis, Crohns Disease, GERD, Irritable Bowel History: No Pertinent History Psycho-Social History: Anxiety, Bipolar, Depression Female Reproductive Disorders: No Pertinent History Other Medical History: "ALOT OF STOMACH PROBLEMS" - Past Surgical History Past Surgical History: Yes Gastrointestinal: Appendectomy, Cholecystectomy Female Surgical History: Hysterectomy Other Surgical History: tonsils - Social History Smoking Status: Never smoker Exposure to second hand smoke: No Drug Use: none Patient Lives Alone: No - Female History Hx Now: No - Nursing Vital Signs Nursing Vital Signs: Initial Vital Signs Temperature 99.4 F 12/17/18 22:37 Pulse Rate 102 H 12/17/18 22:37 Respiratory Rate 20 12/17/18 22:37 Blood Pressure 146/80 12/17/18 22:37 O2 Sat by Pulse Oximetry 98 12/17/18 22:37 Pain Scale Pain Intensity 3 - Physical Exam General Appearance: moderate distress, alert Eye Exam: PERRL/EOMI, eyes nml inspection Ears, Nose, Throat Exam: normal ENT inspection, TMs normal, pharynx normal, moist mucous membranes Neck Exam: normal inspection, non-tender, supple, full range of motion Respiratory Exam: normal breath sounds, lungs clear, No respiratory distress Cardiovascular Exam: regular rate/rhythm, normal heart sounds, normal peripheral pulses, capillary refill <2 sec Gastrointestinal/Abdomen Exam: soft, normal bowel sounds, No tenderness, No mass Back Exam: normal inspection, normal range of motion, No CVA tenderness, No vertebral tenderness Extremity Exam: normal inspection, normal range of motion, pelvis stable Neurologic Exam: alert, oriented x 3, cooperative, teacher dramatics II-XII nml as tested, normal mood/affect, nml cerebellar function, nml station & gait, sensation nml, No motor deficits Skin Exam: normal color, warm, dry, No rash SpO2 Interpretation: normal (98%) SpO2: 98 O2 Delivery: Room Air - Course Nursing assessment & vital signs reviewed: Yes EKG Interpreted by Me: RATE (98 bpm), Sinus Rhythm, NORMAL AXIS, Other (EKG: Sinus rhythm, 98 beats per minute, normal axis,no acute ST or T wave changes, normal EKG) - CT Exams Head CT Interpretation: Tele-radiologist Report (head CT: Impression: No acute intracranial abnormality. No significant change from previous study.( October)) Ordered Tests: Active Orders 24 hr Category Date Time Status EKG-ER Only STAT Care 12/17/18 23:00 Active IV Insertion STAT Care 12/17/18 23:00 Active CHEST 1 VIEW (PORTABLE) Stat Exams 12/17/18 23:08 Taken HEAD WITHOUT CONTRAST [CT] Stat Exams 12/17/18 23:01 Taken AMYLASE Stat Lab 12/17/18 23:07 Completed CBC W DIFF Stat Lab 12/17/18 23:07 Completed CMP Stat Lab 12/17/18 23:07 Completed ETHYL ALCOHOL Stat Lab 12/17/18 23:07 Completed LIPASE Stat Lab 12/17/18 23:07 Completed TROPONIN Q3H Lab 12/17/18 23:07 Completed TROPONIN Q3H Lab 12/18/18 02:00 Ordered TROPONIN Q3H Lab 12/18/18 05:00 Ordered TROPONIN Q3H Lab 12/18/18 08:00 Ordered TROPONIN Q3H Lab 12/18/18 11:00 Ordered UA W/RFX UR CULTURE Stat Lab 12/18/18 00:40 Completed Urine Triage Profile Stat Lab 12/18/18 00:40 Completed Medication Summary Discontinued Medications Generic Name Dose Route Start Last Admin Trade Name Marline PRN Reason Stop Dose Admin Sodium Chloride 1,000 mls @ 999 mls/hr 12/17/18 23:00 12/18/18 01:34 Sodium Chloride 0.9% 1000 Ml IV 12/18/18 00:00 Infused .Q1H1M STA Infusion Sodium Chloride Confirm 12/17/18 23:14 Sodium Chloride 0.9% 1000 Ml Administered 12/17/18 23:15 Dose 1,000 mls @ ud .ROUTE .STK-MED ONE Sodium Chloride 1,000 mls @ 999 mls/hr 12/18/18 01:09 12/18/18 01:16 Sodium Chloride 0.9% 1000 Ml IV 12/18/18 02:09 999 mls/hr .Q1H1M STA Administration Sodium Chloride Confirm 12/18/18 01:15 Sodium Chloride 0.9% 1000 Ml Administered 12/18/18 01:16 Dose 1,000 mls @ ud .ROUTE .STK-MED ONE Morphine Sulfate 4 mg 12/17/18 23:01 12/17/18 23:25 Morphine Sulfate 4 Mg Inj IV 12/17/18 23:02 4 mg STAT ONE Administration Morphine Sulfate Confirm 12/17/18 23:14 Morphine Sulfate 4 Mg Inj Administered 12/17/18 23:15 Dose 4 mg .ROUTE .STK-MED ONE Ondansetron HCl 4 mg 12/17/18 23:00 12/17/18 23:15 Zofran 4 Mg/2 Ml Vial IV 12/17/18 23:01 4 mg STAT ONE Administration Ondansetron HCl Confirm 12/17/18 23:14 Zofran 4 Mg/2 Ml Vial Administered 12/17/18 23:15 Dose 4 mg .ROUTE .STK-MED ONE Lab/Rad Data: Laboratory Result Diagrams 12/17/18 23:07 12/17/18 23:07 Laboratory Results 12/18/18 12/18/18 12/17/18 Range/Units 00:40 00:40 23:07 WBC (4.0-10.5) K/mm3 RBC (4.1-5.4) M/mm3 Hgb (12.0-16.0) gm/dl Hct (35-47) % MCV (78-100) fl MCH (26-32) pg MCHC (32-36) g/dl RDW (11.5-14.0) % Plt Count (150-450) K/mm3 MPV (6-9.5) fl Gran % (36.0-66.0) % Eos # (Auto) (0-0.5) Absolute Lymphs (auto) (1.0-4.6) Absolute Monos (auto) (0.0-1.3) Lymphocytes % (24.0-44.0) % Monocytes % (0.0-12.0) % Eosinophils % (0.00-5.0) % Basophils % (0.0-0.4) % Absolute Granulocytes (1.4-6.9) Basophils # (0-0.4) Sodium (137-145) mmol/L Potassium (3.5-5.1) mmol/L Chloride (98-107) mmol/L Carbon Dioxide (22-30) mmol/L Anion Gap (5-15) MEQ/L BUN (7-17) mg/dL Creatinine (0.52-1.04) mg/dL Estimated GFR ML/MIN Glucose (74-106) mg/dL Calcium (8.4-10.2) mg/dL Total Bilirubin (0.2-1.3) mg/dL AST (14-36) U/L ALT (0-35) U/L Alkaline Phosphatase (38-126) U/L Troponin I (0.000-0.034) ng/mL Serum Total Protein (6.3-8.2) g/dL Albumin (3.5-5.0) g/dL Amylase (30-110) U/L Lipase (23-300) U/L Urine Color YELLOW (YELLOW) Urine Appearance CLEAR (CLEAR) Urine pH 9.0 (5-6) Ur Specific [place] 1.011 (1.005-1.025) Urine Protein NEGATIVE (Negative) Urine Ketones NEGATIVE (NEGATIVE) Urine Blood NEGATIVE (0-5) Jake/ul Urine Nitrite NEGATIVE (NEGATIVE) Urine Bilirubin NEGATIVE (NEGATIVE) Urine Urobilinogen NEGATIVE (0-1) mg/dL Ur Leukocyte Esterase NEGATIVE (NEGATIVE) Urine WBC (Auto) NONE (0-5) /HPF Urine RBC (Auto) 0-2 (0-2) /HPF U Epithel Cells (Auto) NONE (FEW) /HPF Urine Bacteria (Auto) NONE SEEN (NEGATIVE) /HPF Urine Culture Reflexed NO (NO) Urine Glucose NEGATIVE (NEGATIVE) mg/dL Urine Opiates Level POSITIVE (NEGATIVE) Ur Methadone NEGATIVE (NEGATIVE) Urine Barbiturates NEGATIVE (NEGATIVE) Ur Phencyclidine (PCP) NEGATIVE (NEGATIVE) Urine Amphetamine NEGATIVE (NEGATIVE) U Benzodiazepine Level NEGATIVE (NEGATIVE) Urine Cocaine NEGATIVE (NEGATIVE) Urine Marijuana (THC) NEGATIVE (NEGATIVE) Ethyl Alcohol < 10 (0-10) mg/dL 12/17/18 12/17/18 12/17/18 Range/Units 23:07 23:07 23:07 WBC 6.6 (4.0-10.5) K/mm3 RBC 3.93 L (4.1-5.4) M/mm3 Hgb 12.0 (12.0-16.0) gm/dl Hct 36.1 (35-47) % MCV 91.9 (78-100) fl MCH 30.5 (26-32) pg MCHC 33.2 (32-36) g/dl RDW 13.2 (11.5-14.0) % Plt Count 252 (150-450) K/mm3 MPV 10.2 H (6-9.5) fl Gran % 72.7 H (36.0-66.0) % Eos # (Auto) 0.02 (0-0.5) Absolute Lymphs (auto) 1.43 (1.0-4.6) Absolute Monos (auto) 0.32 (0.0-1.3) Lymphocytes % 21.8 L (24.0-44.0) % Monocytes % 4.9 (0.0-12.0) % Eosinophils % 0.3 (0.00-5.0) % Basophils % 0.3 (0.0-0.4) % Absolute Granulocytes 4.78 (1.4-6.9) Basophils # 0.02 (0-0.4) Sodium 139 (137-145) mmol/L Potassium 3.8 (3.5-5.1) mmol/L Chloride 106 (98-107) mmol/L Carbon Dioxide 21 L (22-30) mmol/L Anion Gap 15.8 H (5-15) MEQ/L BUN 8 (7-17) mg/dL Creatinine 0.67 (0.52-1.04) mg/dL Estimated GFR > 60.0 ML/MIN Glucose 88 (74-106) mg/dL Calcium 9.7 (8.4-10.2) mg/dL Total Bilirubin 0.30 (0.2-1.3) mg/dL AST 25 (14-36) U/L ALT 17 (0-35) U/L Alkaline Phosphatase 102 (38-126) U/L Troponin I < 0.012 (0.000-0.034) ng/mL Serum Total Protein 7.2 (6.3-8.2) g/dL Albumin 4.2 (3.5-5.0) g/dL Amylase 81 (30-110) U/L Lipase 47 (23-300) U/L Urine Color (YELLOW) Urine Appearance (CLEAR) Urine pH (5-6) Ur Specific [place] (1.005-1.025) Urine Protein (Negative) Urine Ketones (NEGATIVE) Urine Blood (0-5) Jake/ul Urine Nitrite (NEGATIVE) Urine Bilirubin (NEGATIVE) Urine Urobilinogen (0-1) mg/dL Ur Leukocyte Esterase (NEGATIVE) Urine WBC (Auto) (0-5) /HPF Urine RBC (Auto) (0-2) /HPF U Epithel Cells (Auto) (FEW) /HPF Urine Bacteria (Auto) (NEGATIVE) /HPF Urine Culture Reflexed (NO) Urine Glucose (NEGATIVE) mg/dL Urine Opiates Level (NEGATIVE) Ur Methadone (NEGATIVE) Urine Barbiturates (NEGATIVE) Ur Phencyclidine (PCP) (NEGATIVE) Urine Amphetamine (NEGATIVE) U Benzodiazepine Level (NEGATIVE) Urine Cocaine (NEGATIVE) Urine Marijuana (THC) (NEGATIVE) Ethyl Alcohol (0-10) mg/dL - Progress Progress: improved Progress Note: 12/18/18 01:10 This is a 58-year-old white female with history of DVT, hypothyroidism, fibromyalgia, osteoarthritis, colitis, Crohn's, GERD, irritable bowel, anxiety, bipolar depression Patient arrives with complaint of a headache she states that she was out in the sun for a couple of days she started having a headache had nausea and vomiting patient has no focal symptoms she has no speech problems she did state she had the fairly severe pain in her head. Patient does have a history of chronic pain she is on Collison 10/325 prescribed regularly by her care pain control physician Patient with stable vital signs Patient with a white count of 6.6 hemoglobin 12.0 hematocrit 36.1 platelets are 252 urinalysis is unremarkable urine drug screen is positive for opiates otherwise negative troponin is within normal limits patient's blood alcohol level is less than 10 Patient's chemistry sodium 139 potassium 3.8 chloride 106 bicarbonate 21 BUN 8 creatinine 0.67 glucose is 88 patient with a slightly elevated anion gap of 15.8 EKG sinus rhythm 98 beats per minute normal axis no acute ST or T wave changes are noted Patient's chest x-ray unremarkable. Patient is feeling better after 1 L of normal saline 4 mg of morphine and 4 mg of Zofran IV. Will plan on giving the patient a second liter of normal saline and discharging patient. Impression headache. Mild dehydration. - Departure Departure Disposition: Home Clinical Impression: Mild dehydration Headache Qualifiers: Headache type: unspecified Headache chronicity pattern: unspecified pattern Intractability: not intractable Qualified Code(s): R51 - Headache Condition: Fair Critical Care Time: No Referrals: ASHVIN CARVALHO MD [Primary Care Provider] - Additional Instructions: Return home. Rest, plenty of fluids. Collison as prescribed by your family doctor as needed for pain. Followup with your family DrPraveena. Return for acute distress or for severe symptoms.
[2018-12-17 23:11] LABS: BASOPHIL % 0.3 % (0.0-0.4); Basophil (Absolute #) 0.02 (0-0.4); Eosinophil % 0.3 % (0.00-5.0); Eosinophil (Absolute #) 0.02 (0-0.5); Granulocyte Absolute (ANC) 4.78 (1.4-6.9); Granulocytes % 72.7 % (36.0-66.0); Hematocrit 36.1 % (35-47); Lymphocyte (Absolute #) 1.43 (1.0-4.6); Lymphocytes % 21.8 % (24.0-44.0); Mean Cell Volume 91.9 fl (78-100); Mean Corpuscular Hemoglobin 30.5 pg (26-32); Mean Corpuscular Hgb Concent. 33.2 g/dl (32-36); Mean Platelet Volume 10.2 fl (6-9.5); Monocyte (Absolute #) 0.32 (0.0-1.3); Monocytes % 4.9 % (0.0-12.0); Platelet Count 252 K/mm3 (150-450); Red Blood Count 3.93 M/mm3 (4.1-5.4); Red Cell Distribution Width 13.2 % (11.5-14.0); White Blood Count 6.6 K/mm3 (4.0-10.5)
[2018-12-17] MEDS ORDERED: MORPHINE SULFATE 4 MG INJ ONE (23:14)
[2018-12-17] MEDS ORDERED: Zofran 4 MG/2 ML VIAL ONE (23:14)
[2018-12-17] MEDS ORDERED: Sodium Chloride 0.9% 1000 ML 1,000 ML ONE (23:14)
[2018-12-17 23:19] LABS: ALBUMIN 4.2 g/dL (3.5-5.0); ALKALINE PHOSPHATASE 102 U/L (38-126); AMYLASE 81 U/L (30-110); ANION GAP 15.8 MEQ/L (5-15); BLOOD UREA NITROGEN 8 mg/dL (7-17); CHLORIDE 106 mmol/L (98-107); Calcium 9.7 mg/dL (8.4-10.2); Carbon Dioxide 21 mmol/L (22-30); Creatinine 1 0.67 mg/dL (0.52-1.04); Glucose 88 mg/dL (74-106); LIPASE 47 U/L (23-300); Potassium 3.8 mmol/L (3.5-5.1); SGOT/AST 25 U/L (14-36); SGPT/ALT 17 U/L (0-35); SODIUM 139 mmol/L (137-145); Total Protein 7.2 g/dL (6.3-8.2)
[2018-12-18 00:48] LABS: Appearance CLEAR (CLEAR); Bilirubin NEGATIVE (NEGATIVE); Blood NEGATIVE Ery/ul (0-5); Glucose NEGATIVE (NEGATIVE); Ketones NEGATIVE (NEGATIVE); Leukocyte Esterase NEGATIVE (NEGATIVE); Nitrite NEGATIVE (NEGATIVE); Protein,Urine Dip NEGATIVE (Negative); RBC 0-2 /HPF (0-2); Specific Gravity 1.011 (1.005-1.025); Urobilinogen NEGATIVE mg/dL (0-1)
[2018-12-18 00:55] LABS: Amphetamine,Urine NEGATIVE (NEGATIVE); Bacteria NONE SEEN /HPF (NEGATIVE); Barbiturate,Urine NEGATIVE (NEGATIVE); Benzodiazepine,Urine NEGATIVE (NEGATIVE); Cocaine,Urine NEGATIVE (NEGATIVE); Methadone,Urine NEGATIVE (NEGATIVE); Opiate,Urine POSITIVE (NEGATIVE); PCP,Urine NEGATIVE (NEGATIVE); THC,Urine NEGATIVE (NEGATIVE)
[2018-12-18 01:06] VITALS: O2SAT 98
[2018-12-18] MEDS ORDERED: Sodium Chloride 0.9% 1000 ML 1,000 ML IV STA (01:09)
[2018-12-18] MEDS ORDERED: Sodium Chloride 0.9% 1000 ML 1,000 ML ONE (01:15)
[2018-12-18 02:15] VITALS: BP 153/70; PULSE 85
--- NOTE | 2018-12-18 09:49 | XRAY ---
Indication: Short of breath. Comparison: August 23, 2018. Portable apical lordotic chest underinflated without focal infiltrate, consolidation, or large effusion. Heart is not enlarged. Bony thorax intact again with mild osteopenia and old right rib fractures. Impression: Nonacute underinflated chest.
--- NOTE | 2018-12-18 09:53 | XRAY ---
Indication: Headache. General myalgia. Chronic pain syndrome. Multiple contiguous axial images obtained through the head without contrast. Comparison: November 26, 2014. Again normal appearing brain parenchyma, ventricles, and bony calvarium. Mild mucosal thickening of both ethmoid sinuses. Sub-centimeter right sphenoid sinus polyp/retention cyst. Mastoid air cells are clear. Impression: Paranasal sinus disease as detailed. Remaining CT head without contrast exam is normal. Comment: Preliminary interpretation was made by [facility]. No critical discrepancy. CTDI 67.99
== END 2018-12-18 02:22 | disposition home or self-care (01) ==
LOC: ED 22:33
DX: R51 Headache (principal); E86.0 Dehydration; R11.2 Nausea with vomiting, unspecified; R53.81 Other malaise; Z79.899 Other long term (current) drug therapy; E03.9 Hypothyroidism, unspecified; Z86.718 Personal history of other venous thrombosis and embolism
CPT/HCPCS: 36000; 36415; 70450; 71045; 80053; 80307; 81001; 82150; 83690; 84484; 85025; 93005; 96360; 96361; 96374; 96375; 99284; G0480; J2270; J2405

== ENCOUNTER 2019-01-26 21:49 | Emergency (ER) | payer MEDICARE ==
[2019-01-27 00:08] VITALS: BP 149/75; PULSE 72; O2SAT 100
[2019-01-27] MEDS ORDERED: Eye-Stream Solution ONE (00:10)
[2019-01-27] MEDS ORDERED: Eye-Stream Solution OP ONE (00:16)
--- NOTE | 2019-01-27 00:17 | ERPHSYRPT ---
- History of Present Illness Time Seen by Provider: 01/27/19 00:00 Source: patient Exam Limitations: no limitations Patient Subjective Stated Complaint: pt is alert and orietned. pt is ambulatory with a steady gait. pt comes in after getting antifreeze in her left eye. pt states she went in and rinsed her eye with water immediately after. pt sclera is slightly pink. pt states she has some blurry vision. no watering noted. 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 pt immediately used water and ice to rinse out eye. pt felt she had very small blister forming and mild redness left eye. wanted evaluation. sx improved per pt. Timing/Duration: today Location: left eye Severity: mild Apparent Injury: possibly Associated Symptoms: burning (mild), redness (mild) Allergies/Adverse Reactions: minocycline Allergy (Verified 12/17/18 22:58) Home Medications: Lansoprazole [Prevacid 24Hr] 30 tab PO DAILY 12/23/15 [History] Alosetron HCl [Lotronex] 0.5 mg PO .UNKONWN 06/11/16 [History] Cetirizine HCl [Zyrtec] 10 mg PO DAILY PRN PRN 06/11/16 [History] Hydrocodone/APAP 10/325 mg [[place] 10/325 MG Tablet] 1 tab PO Q8HPRN PRN [History] Quetiapine Fumarate 25 mg [Seroquel 25 MG] 50 mg PO BID 06/11/16 [History] Ropinirole HCl 1 mg PO HS 06/11/16 [History] Acyclovir 200 mg Cap [Zovirax 200 mg ] 400 mg PO DAILY 09/14/17 [History] Alendronate Sodium 70 mg [Fosamax 70 MG] 70 mg PO WEEKLY 09/14/17 [History ] Celecoxib [Celebrex] 200 mg PO DAILY 11/09/17 [History] Escitalopram Oxalate [Lexapro] 20 mg PO DAILY 11/09/17 [History] Hx Tetanus, Diphtheria Vaccination/Date Given: No Hx Influenza Vaccination/Date Given: No Hx Pneumococcal Vaccination/Date Given: No Immunizations Up to Date: Yes - Review of Systems Constitutional: No Symptoms Eyes: Eye Pain (mild left), Eye Redness (mild left) Ears, Nose, & Throat: No Symptoms Respiratory: No Symptoms Cardiac: No Symptoms Abdominal/Gastrointestinal: No Symptoms Genitourinary Symptoms: No Symptoms Musculoskeletal: No Symptoms Skin: No Symptoms Neurological: No Symptoms Psychological: No Symptoms Endocrine: No Symptoms Hematologic/Lymphatic: No Symptoms Immunological/Allergic: No Symptoms All Other Systems: Reviewed and Negative - Past Medical History Pertinent Past Medical History: Yes Neurological History: No Pertinent History ENT History: No Pertinent History Cardiac History: No Pertinent History Respiratory History: No Pertinent History Endocrine Medical History: Hypothyroidism Musculoskeletal History: Fibromyalgia, Osteoarthritis GI Medical History: Colitis, Crohns Disease, GERD, Irritable Bowel History: No Pertinent History Psycho-Social History: Anxiety, Bipolar, Depression Female Reproductive Disorders: No Pertinent History Other Medical History: "ALOT OF STOMACH PROBLEMS" - Past Surgical History Past Surgical History: Yes Neuro Surgical History: No Pertinent History Cardiac: No Pertinent History Respiratory: No Pertinent History Gastrointestinal: Appendectomy, Cholecystectomy Genitourinary: No Pertinent History Musculoskeletal: No Pertinent History Female Surgical History: Hysterectomy Other Surgical History: tonsils - Social History Smoking Status: Never smoker Exposure to second hand smoke: No Drug Use: none Patient Lives Alone: No - Female History Hx Now: No (hysterectomy) - Nursing Vital Signs Nursing Vital Signs: Initial Vital Signs Temperature 98.0 F 01/26/19 23:03 Pulse Rate 68 01/26/19 23:03 Respiratory Rate 16 01/26/19 23:03 Blood Pressure 139/72 01/26/19 23:03 O2 Sat by Pulse Oximetry 99 01/26/19 23:03 Pain Scale Pain Intensity 1 - Physical Exam General Appearance: no apparent distress, alert Vision Acuity Degree Evaluation Phase: Uncorrected Vision Acuity Right Eye: 20/30 Vision Acuity Left Eye: blurry Eye Exam: right eye: normal inspection, left eye: PERRL, EOMI, conjunctival inflammation (mild), corneal abrasion (mild 10 oclock position) Ears, Nose, Throat Exam: normal ENT inspection, moist mucous membranes Neck Exam: normal inspection, non-tender, supple, full range of motion Respiratory Exam: airway intact, No chest tenderness, No respiratory distress Gastrointestinal Exam: No tenderness Extremity Exam: normal inspection, normal range of motion, pelvis stable Neurologic: alert, oriented x 3, cooperative, manager benefit II-XII nml as tested Skin Exam: normal color, warm, dry Lymphatic: No adenopathy SpO2 Interpretation: normal SpO2: 100 O2 Delivery: Room Air Ordered Tests: Medication Summary Discontinued Medications Generic Name Dose Route Start Last Admin Trade Name Marline PRN Reason Stop Dose Admin Eye Irrigation Solution Confirm 01/27/19 00:10 Eye-Stream Solution Administered 01/27/19 00:11 Dose 30 ml .ROUTE .STK-MED ONE Eye Irrigation Solution 15 ml 01/27/19 00:16 01/27/19 00:17 Eye-Stream Solution OP 01/27/19 00:17 15 ml STAT ONE Administration - Progress Progress: improved, re-examined Counseled pt/family regarding: diagnosis, need for follow-up - Departure Departure Disposition: Home Clinical Impression: Conjunctivitis, left eye, Abrasion of left eye Condition: Stable Critical Care Time: No Referrals: ASHVIN CARVALHO MD [Primary Care Provider] - Additional Instructions: follow up with ophthamologist today for further management. rinse out eye several times over next 24 hours as discussed. use medication as prescribed. Prescriptions: Bruno/Polymyx B Sulf/Dexameth [[id number] Eye Drop] 2 drops OP Q6H #10 ml
[2019-01-27] MEDS ORDERED: Erythromycin 3.5 GM OPHTH. OP ONE (00:18)
[2019-01-27] MEDS ORDERED: Erythromycin 1 GM ONE (00:22)
[2019-01-27] MEDS ORDERED: Erythromycin 1 GM OP STA (00:24)
== END 2019-01-27 00:34 | disposition home or self-care (01) ==
LOC: ED 21:49
DX: Z02.89 Encounter for other administrative examinations (principal)
CPT/HCPCS: 99283; A9270-GY

== ENCOUNTER 2019-04-05 09:44 | Day surgery (SDC) | payer MEDICARE ==
[2019-04-05] MEDS ORDERED: Depo-Medrol 40 MG/ML IM ONE (09:45)
[2019-04-05] MEDS ORDERED: Marcaine 0.5% SDV 10 ML IJ ONE (09:45)
[2019-04-05] MEDS ORDERED: Ketamine HCl 50 MG/ML ONE (10:49)
[2019-04-05] MEDS ORDERED: DIPRIVAN 200 MG/20 ML IV ONE (10:49)
--- NOTE | 2019-04-05 13:00 | XRAY ---
Indication: Left SI joint injection. Intraoperative fluoroscopy was provided for 16 seconds. 2 digital spot images submitted for interpretation demonstrates posterior needle tip projecting over the inferior left SI joint. Correlate with intraoperative findings/report.
--- NOTE | 2019-04-05 13:12 | XRAY ---
16 seconds fluoroscopy time in surgery for left SI joint injection.
[2019-04-05] MEDS ORDERED: Lactated Ringers 1,000 ML IV ONE (15:52)
== END 2019-04-05 11:20 | disposition home or self-care (01) ==
LOC: SDC-PAIN 09:44
PROVIDERS: ATTEND Psychiatry & Neurology Pain Medicine
DX: M46.1 Sacroiliitis, not elsewhere classified (principal); M79.7 Fibromyalgia; F31.9 Bipolar disorder, unspecified; Z79.899 Other long term (current) drug therapy
CPT/HCPCS: 72020; 77002; J1030; J2704

== ENCOUNTER 2019-05-03 11:22 | Day surgery (SDC) | payer MEDICARE ==
[2019-05-03] MEDS ORDERED: Depo-Medrol 40 MG/ML IM ONE (11:23)
[2019-05-03] MEDS ORDERED: Xylocaine-Mpf 2% 5 Ml Vial IJ ONE (11:23)
[2019-05-03] MEDS ORDERED: DIPRIVAN 200 MG/20 ML IV ONE (12:40)
[2019-05-03] MEDS ORDERED: Ketamine HCl 50 MG/ML ONE (12:41)
[2019-05-03] MEDS ORDERED: Xylocaine-Mpf 2% 5 Ml Vial ONE (12:44)
[2019-05-03] MEDS ORDERED: Lactated Ringers 1,000 ML IV ONE (14:48)
--- NOTE | 2019-05-03 15:00 | XRAY ---
Indication: Bilateral L4-S1 MBB. Intraoperative fluoroscopy was provided for 6 seconds. Single digital spot image submitted for interpretation demonstrates posterior needle tips projecting over the expected course of the left and right L4-S1 nerve roots. Correlate with intraoperative findings/report.
--- NOTE | 2019-05-03 15:16 | XRAY ---
6 seconds of fluoroscopy was used in surgery for bilateral L4-L5, L5-S1 MBB.
== END 2019-05-03 13:00 | disposition home or self-care (01) ==
LOC: SDC-PAIN 11:22
PROVIDERS: ATTEND Psychiatry & Neurology Pain Medicine
DX: M47.816 Spondylosis without myelopathy or radiculopathy, lumbar region (principal); F31.9 Bipolar disorder, unspecified; M79.7 Fibromyalgia; F41.9 Anxiety disorder, unspecified; Z79.899 Other long term (current) drug therapy
CPT/HCPCS: 64493; 64494; 72020; 77002; J1030; J2704

== ENCOUNTER 2019-06-02 10:01 | Emergency (ER) | payer MEDICARE ==
[2019-06-02 10:18] VITALS: BP 162/74; O2SAT 99
--- NOTE | 2019-06-02 10:29 | ERPHSYRPT ---
- History of Present Illness Time Seen by Provider: 06/02/19 10:25 Source: patient Exam Limitations: no limitations Patient Subjective Stated Complaint: Pt twisted torso 2 days ago and heard something pop under her left breast that radiates to her back and down to her butt, went to [facility] yesterday and got an xray which was negative, pain is worse today Triage Nursing Assessment: Pt walked into the ER slowly, appears to be having spasms in her back and she rates the pain 10/10, hypertensive, tenderness with palpatation, coughing and sneezing exacerbates the pain, lungs clear Physician History: 58 y/o white female presents with left lateral rib pain that shoots down left back into left hip and buttock. it is sharp and shooting. pt twisted her left side and back 2 days ago. pt did not have the pain she has until she twisted. pt sees a pain specialist and is on norco daily. a cxr was performed yesterday at [facility]. this was negative for any acute process. pts pain not being relieved by her norco. feels as though there is a spasm. pt drove herself but can get a ride home. pt specifically denies cp and soa. Method of Injury: bending, twisted Quality: radiating, sharp, stabbing Back Pain Location: lumbar spine (left ribs) Back Pain Radiation: buttocks (left) Severity of Pain-Max: moderate Severity of Pain-Current: moderate Modifying Factors: Improves With: movement Associated Symptoms: muscle spasms, No loss of bowel control, No problems urinating Previous symptoms: no prior history Allergies/Adverse Reactions: minocycline Allergy (Verified 06/02/19 10:20) Home Medications: Lansoprazole [Prevacid 24Hr] 30 tab PO DAILY 12/23/15 [History] Alosetron HCl [Lotronex] 0.5 mg PO DAILY 06/11/16 [History] Cetirizine HCl [Zyrtec] 10 mg PO DAILY PRN PRN 06/11/16 [History] Hydrocodone/APAP 10/325 mg [[place] 10/325 MG Tablet] 1 tab PO Q8HPRN PRN [History] Quetiapine Fumarate 25 mg [Seroquel 25 MG] 100 mg PO HS 06/11/16 [History] Ropinirole HCl 1 mg PO HS 06/11/16 [History] Acyclovir 200 mg Cap [Zovirax 200 mg ] 800 mg PO DAILY 09/14/17 [History] Celecoxib [Celebrex] 200 mg PO DAILY 11/09/17 [History] Escitalopram Oxalate [Lexapro] 20 mg PO DAILY 11/09/17 [History] Amitriptyline HCl 25 mg [Elavil 25 mg] 25 mg PO HS 06/02/19 [History] Hydroxyzine Pamoate [Vistaril] 25 mg PO BID 06/02/19 [History] Levothyroxine Sodium 50 mcg PO DAILY 06/02/19 [History] Meclizine HCl 25 mg [Antivert 25 mg] 25 mg PO DAILY 06/02/19 [History] Hx Tetanus, Diphtheria Vaccination/Date Given: No Hx Influenza Vaccination/Date Given: No Hx Pneumococcal Vaccination/Date Given: No - Review of Systems Constitutional: No Symptoms Eyes: No Symptoms Ears, Nose, & Throat: No Symptoms Respiratory: No Symptoms Cardiac: No Symptoms Abdominal/Gastrointestinal: No Symptoms Genitourinary Symptoms: No Symptoms Musculoskeletal: Other (left rib and left lower back ) Skin: No Symptoms Neurological: No Symptoms Psychological: No Symptoms Endocrine: No Symptoms Hematologic/Lymphatic: No Symptoms Immunological/Allergic: No Symptoms All Other Systems: Reviewed and Negative - Past Medical History Pertinent Past Medical History: Yes Neurological History: No Pertinent History ENT History: No Pertinent History Cardiac History: No Pertinent History Respiratory History: No Pertinent History Endocrine Medical History: Hypothyroidism Musculoskeletal History: Fibromyalgia, Osteoarthritis GI Medical History: Colitis, Crohns Disease, GERD, Irritable Bowel History: No Pertinent History Psycho-Social History: Anxiety, Bipolar, Depression Female Reproductive Disorders: No Pertinent History Other Medical History: "ALOT OF STOMACH PROBLEMS" - Past Surgical History Past Surgical History: Yes Neuro Surgical History: No Pertinent History Cardiac: No Pertinent History Respiratory: No Pertinent History Gastrointestinal: Appendectomy, Cholecystectomy Genitourinary: No Pertinent History Musculoskeletal: No Pertinent History Female Surgical History: Hysterectomy Other Surgical History: tonsils - Social History Smoking Status: Never smoker Exposure to second hand smoke: No Drug Use: none Patient Lives Alone: Yes - Female History Hx Now: No - Nursing Vital Signs Nursing Vital Signs: Initial Vital Signs Temperature 98.1 F 06/02/19 10:08 Pulse Rate 92 H 06/02/19 10:08 Blood Pressure 162/74 06/02/19 10:08 O2 Sat by Pulse Oximetry 99 06/02/19 10:08 Pain Scale Pain Intensity [Left Upper 10 Back] Pain Intensity 10 - Physical Exam General Appearance: mild distress, alert, anxiety Eye Exam: PERRL/EOMI, eyes nml inspection Ears, Nose, Throat Exam: normal ENT inspection, moist mucous membranes Neck Exam: normal inspection, non-tender, supple, full range of motion Respiratory Exam: normal breath sounds, lungs clear, airway intact, other (left lateral rib pain), No respiratory distress Cardiovascular Exam: regular rate/rhythm, normal heart sounds, normal peripheral pulses Gastrointestinal Exam: soft, normal bowel sounds, No tenderness Pelvic Exam: not done Rectal Exam: not done Back Exam: normal inspection, normal range of motion, CVA tenderness, vertebral tenderness, muscle spasm Extremity Exam: normal inspection, normal range of motion, pelvis stable Neurologic Exam: alert, oriented x 3, cooperative, piano teacher II-XII nml as tested Skin Exam: normal color, warm, dry Lymphatic Exam: No adenopathy SpO2 Interpretation: normal SpO2: 99 O2 Delivery: Room Air - Course Nursing assessment & vital signs reviewed: Yes Ordered Tests: Medication Summary Generic Name Dose Route Start Last Admin Trade Name Freq PRN Reason Stop Dose Admin Hydromorphone HCl 0.5 mg 06/02/19 10:42 Hydromorphone 1 Mg/Ml Ampule IM 06/02/19 10:43 STAT ONE - Progress Progress: improved, pain not gone completely Counseled pt/family regarding: diagnosis, need for follow-up - Departure Departure Disposition: Home Clinical Impression: Rib pain on left side Condition: Stable Critical Care Time: No Referrals: ASHVIN CARVALHO MD [Primary Care Provider] - Additional Instructions: continue your norco as prescribed. follow up with your pain specialist on . Prescriptions: Carisoprodol 350 mg [Soma 350 mg] 350 mg PO Q8H PRN PRN #10 tablet PRN Reason: Muscle Spasms Prednisone 10 mg [Deltasone 10 mg] 10 mg PO TID #12 tablet
[2019-06-02] MEDS ORDERED: solu-MEDROL 125 MG IM ONE (10:41)
[2019-06-02] MEDS ORDERED: ZOFRAN ODT 4 MG PO ONE (10:41)
[2019-06-02] MEDS ORDERED: Hydromorphone 1 mg/ml Ampule IM ONE (10:42)
[2019-06-02] MEDS ORDERED: Norflex 60 MG/2 ML IM ONE (10:43)
[2019-06-02] MEDS ORDERED: Norflex 60 MG/2 ML ONE (10:49)
[2019-06-02] MEDS ORDERED: Zofran 4 MG/2 ML VIAL ONE (10:49)
[2019-06-02] MEDS ORDERED: Hydromorphone 1 mg/ml Ampule ONE (10:49)
[2019-06-02] MEDS ORDERED: solu-MEDROL 125 MG ONE (10:50)
[2019-06-02] MEDS ORDERED: Zofran 4 MG/2 ML VIAL IV ONE (11:00)
[2019-06-02 11:02] VITALS: PULSE 101
== END 2019-06-02 11:26 | disposition home or self-care (01) ==
LOC: ED 10:01
DX: R07.81 Pleurodynia (principal)
CPT/HCPCS: 36000; 96374; 96375; 99284; J1170; J2360; J2405; J2930

== ENCOUNTER 2019-07-12 10:00 | Day surgery (SDC) | payer MEDICARE ==
[2019-07-12] MEDS ORDERED: Depo-Medrol 40 MG/ML IM ONE (10:01)
[2019-07-12] MEDS ORDERED: Xylocaine 1% Vial 30 ML PF IJ ONE (10:01)
[2019-07-12] MEDS ORDERED: Marcaine Mpf 0.5% Vial 30 Ml IJ ONE (10:01)
[2019-07-12] MEDS ORDERED: Ketamine HCl 50 MG/ML ONE (11:16)
[2019-07-12] MEDS ORDERED: DIPRIVAN 200 MG/20 ML IV ONE (11:16)
--- NOTE | 2019-07-12 14:32 | XRAY ---
6 seconds fluoroscopy time in surgery for bilateral L4-S1 MBB.
[2019-07-12] MEDS ORDERED: Lactated Ringers 1,000 ML IV ONE (17:03)
== END 2019-07-12 11:45 | disposition home or self-care (01) ==
LOC: SDC-PAIN 10:00
PROVIDERS: ATTEND Psychiatry & Neurology Pain Medicine
DX: M47.816 Spondylosis without myelopathy or radiculopathy, lumbar region (principal); F31.9 Bipolar disorder, unspecified; Z79.899 Other long term (current) drug therapy
CPT/HCPCS: 64493; 64494; 72020; 77002; J1030; J2001; J2704

== ENCOUNTER 2019-09-13 09:20 | Day surgery (SDC) | payer MEDICARE ==
[2019-09-13] MEDS ORDERED: Depo-Medrol 40 MG/ML IM ONE (09:21)
[2019-09-13] MEDS ORDERED: Xylocaine 1% Vial 30 ML PF IJ ONE (09:21)
[2019-09-13] MEDS ORDERED: Marcaine 0.5% SDV 10 ML IJ ONE (09:21)
[2019-09-13] MEDS ORDERED: DIPRIVAN 200 MG/20 ML IV ONE (09:59)
[2019-09-13] MEDS ORDERED: Ketamine HCl 50 MG/ML ONE (09:59)
--- NOTE | 2019-09-13 10:53 | XRAY ---
Indication: Left L4-S1 RFA. Intraoperative fluoroscopy was provided for 18 seconds. 4 digital spot images submitted for interpretation demonstrates posterior needle tips projecting over the expected course of the left L4-S1 nerve roots. Correlate with intraoperative findings/report.
--- NOTE | 2019-09-13 11:00 | XRAY ---
18 seconds fluoroscopy time in surgery for left L4-S1 RFA.
[2019-09-13] MEDS ORDERED: Lactated Ringers 1,000 ML IV ONE (14:51)
== END 2019-09-13 10:30 | disposition home or self-care (01) ==
LOC: SDC-PAIN 09:20
PROVIDERS: ATTEND Psychiatry & Neurology Pain Medicine
DX: M47.816 Spondylosis without myelopathy or radiculopathy, lumbar region (principal); M47.817 Spondylosis without myelopathy or radiculopathy, lumbosacral region; K21.9 Gastro-esophageal reflux disease without esophagitis; F41.8 Other specified anxiety disorders; Z79.899 Other long term (current) drug therapy
CPT/HCPCS: 64635; 64636; 72100; 77002; J1030; J2001; J2704

== ENCOUNTER 2019-09-20 07:55 | Day surgery (SDC) | payer MEDICARE ==
[2019-09-20] MEDS ORDERED: Depo-Medrol 40 MG/ML IM ONE (07:56)
[2019-09-20] MEDS ORDERED: Marcaine 0.5% SDV 10 ML IM ONE (07:56)
[2019-09-20] MEDS ORDERED: VERSED 5 MG/5 ML ONE (08:25)
[2019-09-20] MEDS ORDERED: DIPRIVAN 200 MG/20 ML IV ONE (09:09)
[2019-09-20] MEDS ORDERED: Ketamine HCl 50 MG/ML ONE (09:21)
--- NOTE | 2019-09-20 10:33 | XRAY ---
Indication: Right L4-S1 RFA. Intraoperative fluoroscopy was provided for 13 seconds. 3 digital spot images submitted for interpretation demonstrates posterior needle tips projecting over the expected course of the right L4-S1 nerve root. Correlate with intraoperative findings/report.
--- NOTE | 2019-09-20 10:37 | XRAY ---
13 seconds fluoroscopy time in surgery for right L4-S! RFA
[2019-09-20] MEDS ORDERED: Lactated Ringers 1,000 ML IV ONE (13:59)
== END 2019-09-20 09:38 | disposition home or self-care (01) ==
LOC: SDC-PAIN 07:55
PROVIDERS: ATTEND Psychiatry & Neurology Pain Medicine
DX: M47.816 Spondylosis without myelopathy or radiculopathy, lumbar region (principal); M47.817 Spondylosis without myelopathy or radiculopathy, lumbosacral region; Z79.899 Other long term (current) drug therapy; F31.9 Bipolar disorder, unspecified; F41.8 Other specified anxiety disorders
CPT/HCPCS: 64635; 64636; 72100; 77002; J1030; J2250; J2704

== ENCOUNTER 2020-01-03 09:27 | Day surgery (SDC) | payer MEDICARE ==
[2020-01-03] MEDS ORDERED: Xylocaine 1% Vial 30 ML PF IJ ONE (09:28)
[2020-01-03] MEDS ORDERED: Sodium Chloride 0.9(Preservative Free) 10 ML IJ ONE (09:28)
[2020-01-03] MEDS ORDERED: Depo-Medrol 40 MG/ML IM ONE (09:28)
[2020-01-03] MEDS ORDERED: Ketamine HCl 50 MG/ML ONE (10:34)
[2020-01-03] MEDS ORDERED: DIPRIVAN 200 MG/20 ML IV ONE (10:34)
--- NOTE | 2020-01-03 11:12 | XRAY ---
Indication: Lumbar ILIANA. Intraoperative fluoroscopy was provided for 13 seconds. 2 digital spot images submitted for interpretation demonstrates midline posterior needle tip projecting just posterior to the L4-L5 interspace. Small moderate of contrast injected for needle tip placement. Correlate with intraoperative findings/report.
--- NOTE | 2020-01-03 11:20 | XRAY ---
13 seconds fluoroscopy time in surgery for lumbar ILIANA.
[2020-01-03] MEDS ORDERED: Lactated Ringers 1,000 ML IV ONE (12:36)
== END 2020-01-03 11:03 | disposition home or self-care (01) ==
LOC: SDC-PAIN 09:27
PROVIDERS: ATTEND Psychiatry & Neurology Pain Medicine
DX: M54.16 Radiculopathy, lumbar region (principal); F31.9 Bipolar disorder, unspecified; Z79.899 Other long term (current) drug therapy
CPT/HCPCS: 62323; 72100; 77003; J1030; J2001; J2704; Q9966

== ENCOUNTER 2020-05-08 09:41 | Day surgery (SDC) | payer MEDICARE ==
[~2020-05-08 09:41] MED LIST changes: -Kenalog-40 IM ONE; +Ketamine HCl 50 MG/ML ONE; -Sensorcaine 0.25% 10 ML IJ ONE; -Xylocaine 1% Vial 30 ML PF IJ ONE; +Xylocaine-Mpf 2% 5 Ml Vial ONE
[2020-05-08] MEDS ORDERED: BUPIVACAINE 0.5% VIAL IJ ONE (09:42)
[2020-05-08] MEDS ORDERED: Depo-Medrol 40 MG/ML IM ONE (09:42)
--- NOTE | 2020-05-08 12:48 | XRAY ---
Indication: Bilateral SI joint injection. Intraoperative fluoroscopy provided for 27 seconds. 4 digital spot images submitted for interpretation demonstrates posterior needle tip projecting over the inferior left and right SI joint. Correlate with intraoperative findings/report.
--- NOTE | 2020-05-08 12:50 | XRAY ---
27 seconds fluoroscopy time in surgery for bilateral SI joint injections.
[2020-05-08] MEDS ORDERED: Lactated Ringers 1,000 ML IV ONE (13:44)
== END 2020-05-08 11:45 | disposition home or self-care (01) ==
LOC: SDC-PAIN 09:41
PROVIDERS: ATTEND Psychiatry & Neurology Pain Medicine
DX: M46.1 Sacroiliitis, not elsewhere classified (principal); F31.9 Bipolar disorder, unspecified; Z79.899 Other long term (current) drug therapy
CPT/HCPCS: 72202; 77002; J1030; J2704

== ENCOUNTER 2020-05-23 12:05 | Emergency (ER) | payer MEDICARE ==
[2020-05-23] MEDS ORDERED: Sodium Chloride 0.9% 1000 ML 1,000 ML IV STA ×2 (12:19→13:39)
[2020-05-23] MEDS ORDERED: Sodium Chloride 0.9% 1000 ML 1,000 ML ONE ×2 (12:26→14:24)
--- NOTE | 2020-05-23 12:26 | ERPHSYRPT ---
- History of Present Illness Time Seen by Provider: 05/23/20 12:06 Source: patient Exam Limitations: no limitations Patient Subjective Stated Complaint: pt here for weakness, aches, cough, she has been sick since sat, and was covid postive today, she states her grandson is ill too Triage Nursing Assessment: pt alert, walked in, resp easy, skin w/d/p, moves all ext well, able to undress self, facemask in place, no edema Physician History: 59 yo wf w + Covid test reported today presents w cough/ST/Fever/Myalgias/arthr algias/diarrhea/nausea wo vomiting x7 days. Grandson w same symptoms. Timing/Duration: other (7 days) Cough Quality/Degree: dry cough Possible Cause: no prior episodes Modifying Factors: Improves With: nothing, other Associated Symptoms: fever, chills, headache, muscle aches, sore throat Allergies/Adverse Reactions: minocycline Allergy (Verified 05/23/20 12:15) Home Medications: Lansoprazole [Prevacid 24Hr] 30 tab PO DAILY 12/23/15 [History] Cetirizine HCl [Zyrtec] 10 mg PO DAILY PRN PRN 06/11/16 [History] Hydrocodone/APAP 10/325 mg [[place] 10/325 MG Tablet] 1 tab PO Q8HPRN PRN 06/11/16 [History] Quetiapine Fumarate 25 mg [Seroquel 25 MG] 100 mg PO HS 06/11/16 [History] Ropinirole HCl 1 mg PO HS 06/11/16 [History] Acyclovir 200 mg Cap [Zovirax 200 mg ] 800 mg PO DAILY 09/14/17 [History] Celecoxib [Celebrex] 200 mg PO DAILY 11/09/17 [History] Escitalopram Oxalate [Lexapro] 20 mg PO DAILY 11/09/17 [History] Levothyroxine Sodium 50 mcg PO DAILY 06/02/19 [History] Hx Tetanus, Diphtheria Vaccination/Date Given: No Hx Influenza Vaccination/Date Given: No Hx Pneumococcal Vaccination/Date Given: No Immunizations Up to Date: Yes Travel Risk - International Travel Have you traveled outside of the country in past 3 weeks: No - Coronavirus Screening Are you exhibiting any of the following symptoms?: Yes Symptoms: Cough: New Onset, Shortness of Breath, Headaches/Body Aches/Fatigue Close contact with a COVID-19 positive Pt in past 14-21 Days: Yes - Review of Systems Constitutional: Fever, Chills, Fatigue, Lethargy Eyes: No Symptoms Ears, Nose, & Throat: No Symptoms, Throat Pain Respiratory: No Symptoms, Cough, Dyspnea Cardiac: No Symptoms Abdominal/Gastrointestinal: No Symptoms, Nausea, Diarrhea, No Vomiting Genitourinary Symptoms: No Symptoms Musculoskeletal: No Symptoms, Arthralgias, Myalgias Skin: No Symptoms Neurological: No Symptoms Psychological: No Symptoms Endocrine: No Symptoms Hematologic/Lymphatic: No Symptoms Immunological/Allergic: No Symptoms - Past Medical History Pertinent Past Medical History: Yes Neurological History: No Pertinent History ENT History: No Pertinent History Cardiac History: No Pertinent History Respiratory History: No Pertinent History Endocrine Medical History: Hypothyroidism Musculoskeletal History: Fibromyalgia, Osteoarthritis GI Medical History: Colitis, Crohns Disease, GERD, Irritable Bowel History: No Pertinent History Psycho-Social History: Anxiety, Bipolar, Depression Female Reproductive Disorders: No Pertinent History Other Medical History: "ALOT OF STOMACH PROBLEMS" - Past Surgical History Past Surgical History: Yes Neuro Surgical History: No Pertinent History Cardiac: No Pertinent History Respiratory: No Pertinent History Gastrointestinal: Appendectomy, Cholecystectomy Genitourinary: No Pertinent History Musculoskeletal: No Pertinent History Female Surgical History: Hysterectomy Other Surgical History: tonsils - Social History Smoking Status: Never smoker Exposure to second hand smoke: No Drug Use: none Patient Lives Alone: Yes - Female History Hx Last Menstrual Period: psot Hx Now: No - Nursing Vital Signs Nursing Vital Signs: Initial Vital Signs Temperature 97.7 F 05/23/20 12:06 Pulse Rate 97 H 05/23/20 12:06 Respiratory Rate 18 05/23/20 12:06 Blood Pressure 166/105 05/23/20 12:06 O2 Sat by Pulse Oximetry 97 05/23/20 12:06 Pain Scale Pain Intensity 4 - Physical Exam General Appearance: no apparent distress Eye Exam: PERRL/EOMI, eyes nml inspection Ears, Nose, Throat Exam: normal ENT inspection, TMs normal, pharynx normal, moist mucous membranes Neck Exam: normal inspection, non-tender, supple, full range of motion, No meningismus, No mass, No Brudzinski, No Kernig's Respiratory Exam: normal breath sounds, lungs clear, airway intact, No respiratory distress Cardiovascular Exam: regular rate/rhythm, normal heart sounds, normal peripheral pulses, No murmur Gastrointestinal/Abdomen Exam: soft, normal bowel sounds, No tenderness Back Exam: normal inspection, normal range of motion, CVA tenderness Extremity Exam: normal inspection, normal range of motion Neurologic Exam: alert, oriented x 3, cooperative, clinical informatics spec II-XII nml as tested, no rmal mood/affect, nml cerebellar function, nml station & gait, sensation nml, No motor deficits, No sensory deficit Skin Exam: normal color, warm, dry, No rash Lymphatic Exam: No adenopathy SpO2 Interpretation: normal SpO2: 97 O2 Delivery: Room Air - Course Nursing assessment & vital signs reviewed: Yes Ordered Tests: Active Orders 24 hr Category Date Time Status IV Insertion STAT Care 05/23/20 12:29 Completed CHEST 1 VIEW (PORTABLE) Stat Exams 05/23/20 12:17 Completed CBC W DIFF Stat Lab 05/23/20 12:10 Completed CMP Stat Lab 05/23/20 12:10 Completed Lactic Acid Stat Lab 05/23/20 12:29 Completed Lactic Acid Stat Lab 05/23/20 15:46 Completed Manual Differential NC Stat Lab 05/23/20 12:10 Completed PROTIME WITH INR Stat Lab 05/23/20 12:10 Completed PTT Stat Lab 05/23/20 12:10 Completed TROPONIN Q3H Lab 05/23/20 12:10 Completed TROPONIN Q3H Lab 05/23/20 15:35 Completed UA W/RFX UR CULTURE Stat Lab 05/23/20 13:50 Completed Medication Summary Discontinued Medications Generic Name Dose Route Start Last Admin Trade Name Jordiq PRN Reason Stop Dose Admin Sodium Chloride 1,000 mls @ 999 mls/hr 05/23/20 12:19 05/23/20 13:41 Sodium Chloride 0.9% 1000 Ml IV 05/23/20 13:19 Infused .Q1H1M STA Infusion Sodium Chloride Confirm 05/23/20 12:26 Sodium Chloride 0.9% 1000 Ml Administered 05/23/20 12:27 Dose 1,000 mls @ ud .ROUTE .STK-MED ONE Sodium Chloride 1,000 mls @ 999 mls/hr 05/23/20 13:39 05/23/20 15:29 Sodium Chloride 0.9% 1000 Ml IV 05/23/20 14:39 Infused .Q1H1M STA Infusion Sodium Chloride Confirm 05/23/20 14:24 Sodium Chloride 0.9% 1000 Ml Administered 05/23/20 14:25 Dose 1,000 mls @ ud .ROUTE .STK-MED ONE Ketorolac Tromethamine 30 mg 05/23/20 15:21 05/23/20 15:25 Toradol 30 Mg Injection IV 05/23/20 15:22 30 mg STAT ONE Administration Ketorolac Tromethamine Confirm 05/23/20 15:23 Toradol 30 Mg Injection Administered 05/23/20 15:24 Dose 30 mg .ROUTE .STK-MED ONE Lab/Rad Data: Laboratory Result Diagrams 05/23/20 12:10 05/23/20 12:10 Laboratory Results 05/23/20 05/23/20 05/23/20 Range/Units 15:46 15:35 13:50 WBC (4.0-10.5) K/mm3 RBC (4.1-5.4) M/mm3 Hgb (12.0-16.0) gm/dl Hct (35-47) % MCV (78-100) fl MCH (26-32) pg MCHC (32-36) g/dl RDW (11.5-14.0) % Plt Count (150-450) K/mm3 MPV (7.5-11.0) fl PT (9.95-12.35) SECONDS INR (0.8-3.0) APTT (25.3-37.0) SECONDS Sodium (137-145) mmol/L Potassium (3.5-5.1) mmol/L Chloride (98-107) mmol/L Carbon Dioxide (22-30) mmol/L Anion Gap (5-15) MEQ/L BUN (7-17) mg/dL Creatinine (0.52-1.04) mg/dL Estimated GFR ML/MIN Glucose (74-106) mg/dL Lactic Acid 1.0 (0.4-2.0) Calcium (8.4-10.2) mg/dL Total Bilirubin (0.2-1.3) mg/dL AST (14-36) U/L ALT (0-35) U/L Alkaline Phosphatase (38-126) U/L Troponin I < 0.012 (0.000-0.034) ng/mL Serum Total Protein (6.3-8.2) g/dL Albumin (3.5-5.0) g/dL Urine Color YELLOW (YELLOW) Urine Appearance CLEAR (CLEAR) Urine pH 6.0 (5-6) Ur Specific [place] 1.018 (1.005-1.025) Urine Protein NEGATIVE (Negative) Urine Ketones NEGATIVE (NEGATIVE) Urine Blood NEGATIVE (0-5) Jake/ul Urine Nitrite NEGATIVE (NEGATIVE) Urine Bilirubin NEGATIVE (NEGATIVE) Urine Urobilinogen NEGATIVE (0-1) mg/dL Ur Leukocyte Esterase NEGATIVE (NEGATIVE) Urine WBC (Auto) NONE (0-5) /HPF Urine RBC (Auto) NONE (0-2) /HPF U Epithel Cells (Auto) NONE (FEW) /HPF Urine Bacteria (Auto) NONE (NEGATIVE) /HPF Urine Mucus (Auto) SLIGHT (NEGATIVE) /HPF Urine Culture Reflexed NO (NO) Urine Glucose NEGATIVE (NEGATIVE) mg/dL Group A Strep Antibody (NEGATIVE) 05/23/20 05/23/20 05/23/20 Range/Units 12:30 12:29 12:10 WBC (4.0-10.5) K/mm3 RBC (4.1-5.4) M/mm3 Hgb (12.0-16.0) gm/dl Hct (35-47) % MCV (78-100) fl MCH (26-32) pg MCHC (32-36) g/dl RDW (11.5-14.0) % Plt Count (150-450) K/mm3 MPV (7.5-11.0) fl PT (9.95-12.35) SECONDS INR (0.8-3.0) APTT (25.3-37.0) SECONDS Sodium (137-145) mmol/L Potassium (3.5-5.1) mmol/L Chloride (98-107) mmol/L Carbon Dioxide (22-30) mmol/L Anion Gap (5-15) MEQ/L BUN (7-17) mg/dL Creatinine (0.52-1.04) mg/dL Estimated GFR ML/MIN Glucose (74-106) mg/dL Lactic Acid 3.2 H (0.4-2.0) Calcium (8.4-10.2) mg/dL Total Bilirubin (0.2-1.3) mg/dL AST (14-36) U/L ALT (0-35) U/L Alkaline Phosphatase (38-126) U/L Troponin I < 0.012 (0.000-0.034) ng/mL Serum Total Protein (6.3-8.2) g/dL Albumin (3.5-5.0) g/dL Urine Color (YELLOW) Urine Appearance (CLEAR) Urine pH (5-6) Ur Specific [place] (1.005-1.025) Urine Protein (Negative) Urine Ketones (NEGATIVE) Urine Blood (0-5) Jake/ul Urine Nitrite (NEGATIVE) Urine Bilirubin (NEGATIVE) Urine Urobilinogen (0-1) mg/dL Ur Leukocyte Esterase (NEGATIVE) Urine WBC (Auto) (0-5) /HPF Urine RBC (Auto) (0-2) /HPF U Epithel Cells (Auto) (FEW) /HPF Urine Bacteria (Auto) (NEGATIVE) /HPF Urine Mucus (Auto) (NEGATIVE) /HPF Urine Culture Reflexed (NO) Urine Glucose (NEGATIVE) mg/dL Group A Strep Antibody NOT DETECTED (NEGATIVE) 05/23/20 05/23/20 05/23/20 Range/Units 12:10 12:10 12:10 WBC 5.9 (4.0-10.5) K/mm3 RBC 4.57 (4.1-5.4) M/mm3 Hgb 13.6 (12.0-16.0) gm/dl Hct 41.7 (35-47) % MCV 91.2 (78-100) fl MCH 29.8 (26-32) pg MCHC 32.6 (32-36) g/dl RDW 14.3 H (11.5-14.0) % Plt Count 248 (150-450) K/mm3 MPV 10.8 (7.5-11.0) fl PT 12.2 (9.95-12.35) SECONDS INR 1.08 (0.8-3.0) APTT 31.8 (25.3-37.0) SECONDS Sodium 139 (137-145) mmol/L Potassium 3.3 L (3.5-5.1) mmol/L Chloride 106 (98-107) mmol/L Carbon Dioxide 24 (22-30) mmol/L Anion Gap 12.2 (5-15) MEQ/L BUN 8 (7-17) mg/dL Creatinine 0.76 (0.52-1.04) mg/dL Estimated GFR > 60.0 ML/MIN Glucose 124 H (74-106) mg/dL Lactic Acid (0.4-2.0) Calcium 8.9 (8.4-10.2) mg/dL Total Bilirubin 0.30 (0.2-1.3) mg/dL AST 24 (14-36) U/L ALT 17 (0-35) U/L Alkaline Phosphatase 108 (38-126) U/L Troponin I (0.000-0.034) ng/mL Serum Total Protein 7.9 (6.3-8.2) g/dL Albumin 4.6 (3.5-5.0) g/dL Urine Color (YELLOW) Urine Appearance (CLEAR) Urine pH (5-6) Ur Specific [place] (1.005-1.025) Urine Protein (Negative) Urine Ketones (NEGATIVE) Urine Blood (0-5) Jake/ul Urine Nitrite (NEGATIVE) Urine Bilirubin (NEGATIVE) Urine Urobilinogen (0-1) mg/dL Ur Leukocyte Esterase (NEGATIVE) Urine WBC (Auto) (0-5) /HPF Urine RBC (Auto) (0-2) /HPF U Epithel Cells (Auto) (FEW) /HPF Urine Bacteria (Auto) (NEGATIVE) /HPF Urine Mucus (Auto) (NEGATIVE) /HPF Urine Culture Reflexed (NO) Urine Glucose (NEGATIVE) mg/dL Group A Strep Antibody (NEGATIVE) - Progress Progress: improved Progress Note: 05/23/20 15:58 Pt given 2L NS bolus/30mg IV toradol w improvement. Counseled pt/family regarding: lab results, diagnosis, need for follow-up, rad results - Departure Departure Disposition: Home Clinical Impression: COVID-19 Condition: Stable Critical Care Time: No Referrals: ASHVIN CARVALHO MD [Primary Care Provider] - Instructions: Coronavirus Disease 2019 (COVID-19) (DC) Additional Instructions: Follow up with family MD in 2-3 days Get a pulse oximeter and monitor oxygen saturation 3-4 times a day. Return to ER for continuous oxygen saturation less than 91
[2020-05-23 12:32] LABS: Hematocrit 41.7 % (35-47); Hemoglobin 13.6 gm/dl (12.0-16.0); Mean Cell Volume 91.2 fl (78-100); Mean Corpuscular Hemoglobin 29.8 pg (26-32); Mean Corpuscular Hgb Concent. 32.6 g/dl (32-36); Mean Platelet Volume 10.8 fl (7.5-11.0); Platelet Count 248 K/mm3 (150-450); Red Blood Count 4.57 M/mm3 (4.1-5.4); Red Cell Distribution Width 14.3 % (11.5-14.0); White Blood Count 5.9 K/mm3 (4.0-10.5)
[2020-05-23 12:39] LABS: INR 1.08 (0.8-3.0); PROTIME 12.2 SECONDS (9.95-12.35)
[2020-05-23 12:41] LABS: PTT 31.8 SECONDS (25.3-37.0)
[2020-05-23 12:43] LABS: ALBUMIN 4.6 g/dL (3.5-5.0); ALKALINE PHOSPHATASE 108 U/L (38-126); ANION GAP 12.2 MEQ/L (5-15); BLOOD UREA NITROGEN 8 mg/dL (7-17); CHLORIDE 106 mmol/L (98-107); Calcium 8.9 mg/dL (8.4-10.2); Carbon Dioxide 24 mmol/L (22-30); Creatinine 1 0.76 mg/dL (0.52-1.04); EST GLOMERULAR FILTRATION RATE > 60.0 ML/MIN; Glucose 124 mg/dL (74-106); Potassium 3.3 mmol/L (3.5-5.1); SGOT/AST 24 U/L (14-36); SGPT/ALT 17 U/L (0-35); SODIUM 139 mmol/L (137-145); Total Protein 7.9 g/dL (6.3-8.2)
--- NOTE | 2020-05-23 12:50 | XRAY ---
Indication: Cough. Positive Covid 19. Comparison: December 17, 2018. Portable chest better inflated and demonstrates normal heart and lungs. Bony thorax intact again with old right 5th rib fracture. No new/acute findings.
[2020-05-23 14:01] LABS: Appearance CLEAR (CLEAR); Bilirubin NEGATIVE (NEGATIVE); Blood NEGATIVE Ery/ul (0-5); Glucose NEGATIVE (NEGATIVE); Ketones NEGATIVE (NEGATIVE); Leukocyte Esterase NEGATIVE (NEGATIVE); Mucus SLIGHT /HPF (NEGATIVE); Nitrite NEGATIVE (NEGATIVE); Protein,Urine Dip NEGATIVE (Negative); Specific Gravity 1.018 (1.005-1.025); Urobilinogen NEGATIVE mg/dL (0-1)
[2020-05-23] MEDS ORDERED: TORAdol 30 mg Injection IV ONE (15:21)
[2020-05-23] MEDS ORDERED: TORAdol 30 mg Injection ONE (15:23)
[2020-05-23 15:57] VITALS: BP 144/76; PULSE 75
[2020-05-23 16:01] VITALS: O2SAT 97
== END 2020-05-23 16:18 | disposition home or self-care (01) ==
LOC: ED 12:05
DX: U07.1 COVID-19 (principal)
CPT/HCPCS: 36000; 36415; 71045; 80053; 81001; 83605; 84484; 85025; 85610; 85730; 87651; 96360; 96361; 96374; 96375; 99284; J1885

== ENCOUNTER 2020-08-14 12:36 | Day surgery (SDC) | payer MEDICARE ==
[2020-08-14] MEDS ORDERED: Decadron 4 MG INJ IV ONE (12:37)
[2020-08-14] MEDS ORDERED: Xylocaine 1% Vial 30 ML PF IJ ONE (12:37)
[2020-08-14] MEDS ORDERED: Ketamine HCl 50 MG/ML ONE (15:21)
[2020-08-14] MEDS ORDERED: DIPRIVAN 200 MG/20 ML IV ONE (15:21)
[2020-08-14] MEDS ORDERED: Lactated Ringers 1,000 ML IV ONE (15:30)
--- NOTE | 2020-08-14 17:55 | XRAY ---
16 seconds fluoroscopy time in surgery for right piriformis muscle injection.
--- NOTE | 2020-08-14 18:03 | XRAY ---
Indication: Right piriformis injection. Intraoperative fluoroscopy was provided for 16 seconds. Single digital spot image obtained prone demonstrates needle tip projecting over the expected right piriformis muscle. Small amount of contrast injected for needle tip placement. Correlate with intraoperative findings/report.
== END 2020-08-14 15:45 | disposition home or self-care (01) ==
LOC: SDC-PAIN 12:36
PROVIDERS: ATTEND Psychiatry & Neurology Pain Medicine
DX: M60.9 Myositis, unspecified (principal); F31.9 Bipolar disorder, unspecified; Z79.899 Other long term (current) drug therapy
CPT/HCPCS: 72020; 77002; J1100; J2001; J2704

== ENCOUNTER 2021-08-27 08:35 | Day surgery (SDC) | payer MEDICARE ==
[2021-08-27] MEDS ORDERED: Depo-Medrol 40 MG/ML IM ONE (08:36)
[2021-08-27] MEDS ORDERED: BUPIVACAINE 0.5% VIAL IJ ONE (08:36)
[2021-08-27] MEDS ORDERED: DIPRIVAN 200 MG/20 ML IV ONE (10:01)
[2021-08-27] MEDS ORDERED: Xylocaine-Mpf 2% 5 Ml Vial ONE (10:03)
--- NOTE | 2021-08-27 11:51 | XRAY ---
Indication: Bilateral SI joint injection. Intraoperative fluoroscopy was provided for 23 seconds. 4 digital spot image submitted for interpretation demonstrates posterior needle tip projecting over the inferior left and right SI joint. Correlate with intraoperative findings/report.
--- NOTE | 2021-08-27 12:38 | XRAY ---
23 seconds of fluoroscopy was used in surgery for bilateral SI joint injections.
[2021-08-27] MEDS ORDERED: Lactated Ringers 1,000 ML IV ONE (13:12)
== END 2021-08-27 10:30 | disposition home or self-care (01) ==
LOC: SDC-PAIN 08:35
PROVIDERS: ATTEND Psychiatry & Neurology Pain Medicine
DX: M46.1 Sacroiliitis, not elsewhere classified (principal); Z79.899 Other long term (current) drug therapy
CPT/HCPCS: 27096; 72202; 77002; G0260; J1030; J2704

== ENCOUNTER 2021-12-31 12:40 | Day surgery (SDC) | payer MEDICARE ==
[2021-12-31] MEDS ORDERED: Marcaine Mpf 0.5% Vial 30 Ml IJ ONE (12:41)
[2021-12-31] MEDS ORDERED: Xylocaine-Mpf 2% 5 Ml Vial ONE (14:23)
[2021-12-31] MEDS ORDERED: DIPRIVAN 200 MG/20 ML IV ONE (14:23)
[2021-12-31] MEDS ORDERED: Lactated Ringers 1,000 ML IV ONE (14:41)
--- NOTE | 2021-12-31 15:04 | XRAY ---
Indication: Bilateral L4-S1 MBB. Intraoperative fluoroscopy provided for 14 seconds. Single digital spot images submitted for interpretation demonstrates posterior needle tips projecting over the expected left and right L4-S1 nerve roots. Correlate with intraoperative findings/report.
--- NOTE | 2021-12-31 15:04 | XRAY ---
14 seconds of fluoroscopy was used in surgery for a bilateral L4-S1 MBB.
== END 2021-12-31 14:43 | disposition home or self-care (01) ==
LOC: SDC-PAIN 12:40
PROVIDERS: ATTEND Psychiatry & Neurology Pain Medicine
DX: M47.816 Spondylosis without myelopathy or radiculopathy, lumbar region (principal); Z79.899 Other long term (current) drug therapy
CPT/HCPCS: 64493; 64494; 72020; 77002; J2704

== ENCOUNTER 2022-06-10 10:18 | Day surgery (SDC) | payer MEDICARE ==
[2022-06-10] MEDS ORDERED: BUPIVACAINE 0.5% VIAL IJ ONE (10:19)
[2022-06-10] MEDS ORDERED: Depo-Medrol 40 MG/ML IM ONE (10:19)
[2022-06-10] MEDS ORDERED: DIPRIVAN 200 MG/20 ML IV ONE (11:08)
[2022-06-10] MEDS ORDERED: Xylocaine-Mpf 2% 5 Ml Vial ONE (11:22)
--- NOTE | 2022-06-10 12:38 | XRAY ---
Indication: Bilateral SI joint injection. Intraoperative fluoroscopy provided for 20 seconds. 4 digital spot images submitted for interpretation demonstrates posterior needle tip projecting over the left and right SI joint. Correlate with intraoperative findings/report.
--- NOTE | 2022-06-10 13:29 | XRAY ---
20 seconds of fluoroscopy was used in surgery for a bilateral sacroiliac joint injection.
[2022-06-10] MEDS ORDERED: Lactated Ringers 1,000 ML IV ONE (15:18)
== END 2022-06-10 11:40 | disposition home or self-care (01) ==
LOC: SDC-PAIN 10:18
PROVIDERS: ATTEND Psychiatry & Neurology Pain Medicine
DX: M46.1 Sacroiliitis, not elsewhere classified (principal); Z79.899 Other long term (current) drug therapy
CPT/HCPCS: 27096; 72202; 77002; G0260; J1030; J2704

== ENCOUNTER 2022-09-23 08:56 | Day surgery (SDC) | payer MEDICARE ==
[2022-09-23] MEDS ORDERED: Depo-Medrol 40 MG/ML IM ONE (08:57)
[2022-09-23] MEDS ORDERED: BUPIVACAINE 0.5% VIAL IJ ONE (08:57)
[2022-09-23] MEDS ORDERED: DIPRIVAN 200 MG/20 ML IV ONE (11:21)
[2022-09-23] MEDS ORDERED: Xylocaine-Mpf 2% 5 Ml Vial ONE (11:26)
--- NOTE | 2022-09-23 13:08 | XRAY ---
20 seconds of fluoroscopy was used in surgery for a bilateral sacroiliac joint injection.
[2022-09-23] MEDS ORDERED: Lactated Ringers 1,000 ML IV ONE (14:03)
== END 2022-09-23 12:00 | disposition home or self-care (01) ==
LOC: SDC-PAIN 08:56
PROVIDERS: ATTEND Psychiatry & Neurology Pain Medicine
DX: M46.1 Sacroiliitis, not elsewhere classified (principal); Z79.899 Other long term (current) drug therapy
CPT/HCPCS: 01992; 27096; 72202; 77002; G0260; J1030; J2704

== ENCOUNTER 2023-03-03 07:29 | Day surgery (SDC) | payer MEDICARE ==
[2023-03-03] MEDS ORDERED: Depo-Medrol 40 MG/ML IM ONE (07:30)
[2023-03-03] MEDS ORDERED: LIDOCAINE HCL 1% 50 MG/5 ML VL PF IJ ONE (07:30)
[2023-03-03] MEDS ORDERED: BUPIVACAINE 0.5% VIAL IJ ONE (07:30)
[2023-03-03] MEDS ORDERED: Xylocaine-Mpf 2% 5 Ml Vial ONE (09:06)
[2023-03-03] MEDS ORDERED: DIPRIVAN 200 MG/20 ML IV ONE (09:06)
--- NOTE | 2023-03-03 10:47 | XRAY ---
Indication: Right L4-S1 RFA. Intraoperative fluoroscopy provided for 21 seconds. 3 digital spot image submitted for interpretation demonstrates posterior needle tips projecting over the expected right L4-S1 nerve roots. Correlate with intraoperative findings/report.
[2023-03-03] MEDS ORDERED: Lactated Ringers 1,000 ML IV ONE (11:14)
--- NOTE | 2023-03-03 11:59 | XRAY ---
21 seconds of fluoroscopy was used in surgery for a right L4-S1 RFA.
== END 2023-03-03 09:33 | disposition home or self-care (01) ==
LOC: SDC-PAIN 07:29
PROVIDERS: ATTEND Psychiatry & Neurology Pain Medicine
DX: M47.816 Spondylosis without myelopathy or radiculopathy, lumbar region (principal); Z79.899 Other long term (current) drug therapy
CPT/HCPCS: 64635; 64636; 72100; 77002; J1030; J2001; J2704

== ENCOUNTER 2023-03-10 14:03 | Day surgery (SDC) | payer MEDICARE ==
[2023-03-10] MEDS ORDERED: Depo-Medrol 40 MG/ML IM ONE (14:04)
[2023-03-10] MEDS ORDERED: BUPIVACAINE 0.5% VIAL IJ ONE (14:04)
[2023-03-10] MEDS ORDERED: LIDOCAINE HCL 1% 50 MG/5 ML VL PF IJ ONE (14:04)
[2023-03-10] MEDS ORDERED: DIPRIVAN 200 MG/20 ML IV ONE ×2 (16:02→16:12)
[2023-03-10] MEDS ORDERED: Lactated Ringers 1,000 ML IV ONE (16:28)
--- NOTE | 2023-03-10 16:58 | XRAY ---
Indication: Left L4-S1 RFA. Intraoperative fluoroscopy provided for 19 seconds. 3 digital spot image submitted for interpretation demonstrates posterior needle tips projecting over the expected left L4-S1 nerve roots. Correlate with intraoperative findings/report.
--- NOTE | 2023-03-10 16:59 | XRAY ---
19 seconds of fluoroscopy was used in surgery for a left L4-S1 RFA.
== END 2023-03-10 16:32 | disposition home or self-care (01) ==
LOC: SDC-PAIN 14:03
PROVIDERS: ATTEND Psychiatry & Neurology Pain Medicine
DX: M47.816 Spondylosis without myelopathy or radiculopathy, lumbar region (principal); Z79.899 Other long term (current) drug therapy
CPT/HCPCS: 64635; 64636; 72100; 77002; J1030; J2001; J2704

== ENCOUNTER 2023-08-31 15:39 | Emergency (ER) | payer MEDICARE ==
[2023-08-31 16:28] VITALS: RESP 22; TEMP 97.7
--- NOTE | 2023-08-31 17:01 | XRAY ---
Indication: Pain. No known injury. Comparison: None 3 nonweightbearing views left foot demonstrates osteopenia and small plantar heel spur. No other bony, articular, or soft tissue abnormalities.
--- NOTE | 2023-08-31 17:40 | ERPHSYRPT ---
- History of Present Illness Time Seen by Provider: 08/31/23 16:30 Source: patient Exam Limitations: no limitations Patient Subjective Stated Complaint: PT states "I was at work and my left foot started to have pain under my shoe. It really hurts." Triage Nursing Assessment: PT presented alert and oriented X3, skin pwd. Pt ambualtes with a limp. 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 Physician History: C7-year-old female presents emergency department for evaluation of pain to the dorsal aspect of her left foot. Pain described as an ache that is localized. No radiation. Patient has [place] at home. Patient declined pain medication. Patient states she was working all day and the shoe that she was wearing has a strap over the area that is currently tender. No signs of infection. No drainage. Patient voices no other complaints or concerns at this time. Portions of this note were created with voice recognition technology. There may be grammatical, spelling, punctuation or sound alike errors Timing/Duration: today Severity: moderate Modifying Factors: Improves With: nothing Associated Symptoms: denies symptoms Allergies/Adverse Reactions: minocycline Allergy (Verified 01/01/23 10:02) Home Medications: Lansoprazole [Prevacid 24Hr] 30 tab PO DAILY 12/23/15 [History] Cetirizine HCl [Zyrtec] 10 mg PO DAILY PRN PRN 06/11/16 [History] Hydrocodone/APAP 10/325 mg [[place]ortuna 10/325 MG Tablet] 1 tab PO Q8HPRN PRN 06/11/16 [History] Quetiapine Fumarate 25 mg [Seroquel 25 MG] 100 mg PO HS 06/11/16 [History] Ropinirole HCl 1 mg PO HS 06/11/16 [History] Celecoxib [Celebrex] 200 mg PO DAILY 11/09/17 [History] Levothyroxine Sodium 50 mcg PO DAILY 06/02/19 [History] Albuterol Sulfate [Albuterol Sulfate Hfa] 8.5 gm IH DAILY 01/01/23 [History] Desipramine HCl 10 mg PO DAILY 01/01/23 [History] Fluoxetine HCl 20 mg [Prozac 20 MG] 20 mg PO DAILY 01/01/23 [History] Hydroxyzine HCl 25 mg [Atarax 25 mg] 25 mg PO DAILY 01/01/23 [History] Levocetirizine Dihydrochloride 5 mg PO DAILY 01/01/23 [History] Hx Tetanus, Diphtheria Vaccination/Date Given: No Hx Influenza Vaccination/Date Given: No Hx Pneumococcal Vaccination/Date Given: No Immunizations Up to Date: No Travel Risk - International Travel Have you traveled outside of the country in past 3 weeks: No - Coronavirus Screening Are you exhibiting any of the following symptoms?: No Close contact with a COVID-19 positive Pt in past 14-21 Days: No - Vaccine Status Have you recieved a Covid-19 vaccination: No - Review of Systems Constitutional: No Symptoms, No Fever, No Chills Eyes: No Symptoms Ears, Nose, & Throat: No Symptoms Respiratory: No Symptoms, No Cough, No Dyspnea Cardiac: No Symptoms, No Chest Pain, No Edema, No Syncope Abdominal/Gastrointestinal: No Symptoms, No Abdominal Pain, No Nausea, No Vomiting, No Diarrhea Genitourinary Symptoms: No Symptoms, No Dysuria Musculoskeletal: No Symptoms, No Back Pain, No Neck Pain Skin: No Symptoms, No Rash Neurological: No Symptoms, No Dizziness, No Focal Weakness, No Sensory Changes Psychological: No Symptoms Endocrine: No Symptoms Hematologic/Lymphatic: No Symptoms Immunological/Allergic: No Symptoms All Other Systems: Reviewed and Negative - Past Medical History Pertinent Past Medical History: Yes Neurological History: No Pertinent History ENT History: No Pertinent History Cardiac History: No Pertinent History Respiratory History: No Pertinent History Endocrine Medical History: Hypothyroidism Musculoskeletal History: Fibromyalgia, Osteoarthritis, Osteoporosis GI Medical History: Colitis, GERD, Irritable Bowel History: No Pertinent History Psycho-Social History: Anxiety, Bipolar, Depression Female Reproductive Disorders: No Pertinent History Other Medical History: "ALOT OF STOMACH PROBLEMS" - Past Surgical History Past Surgical History: Yes Neuro Surgical History: No Pertinent History Cardiac: No Pertinent History Respiratory: No Pertinent History Gastrointestinal: Appendectomy, Cholecystectomy Genitourinary: No Pertinent History Musculoskeletal: No Pertinent History Female Surgical History: Hysterectomy Other Surgical History: tonsils - Social History Smoking Status: Never smoker Exposure to second hand smoke: No Drug Use: none Patient Lives Alone: Yes - Nursing Vital Signs Nursing Vital Signs: Initial Vital Signs Temperature 97.7 F 08/31/23 16:23 Pulse Rate 87 08/31/23 16:23 Respiratory Rate 22 08/31/23 16:23 Blood Pressure 132/95 08/31/23 16:23 O2 Sat by Pulse Oximetry 99 08/31/23 16:23 Pain Scale Pain Intensity 5 - Physical Exam General Appearance: no apparent distress, alert Eye Exam: PERRL/EOMI, eyes nml inspection Ears, Nose, Throat Exam: normal ENT inspection, moist mucous membranes Neck Exam: normal inspection, full range of motion Respiratory Exam: normal breath sounds, lungs clear, airway intact, No re spiratory distress Cardiovascular Exam: regular rate/rhythm, normal heart sounds, normal peripheral pulses Gastrointestinal/Abdomen Exam: soft, normal bowel sounds, No tenderness, No mass Back Exam: normal inspection, normal range of motion, No CVA tenderness, No vertebral tenderness Extremity Exam: normal inspection, normal range of motion Neurologic Exam: alert, oriented x 3, cooperative, normal mood/affect, sensation nml, No motor deficits Skin Exam: normal color, warm, dry, No rash Lymphatic Exam: No adenopathy SpO2 Interpretation: normal SpO2: 97 O2 Delivery: Room Air - Course Nursing assessment & vital signs reviewed: Yes - Radiology Exams Foot X-ray Interpretation: Teleradiologist Report (No fracture or dislocation. Heel spur osteopenia) Ordered Tests: Active Orders 24 hr Category Date Time Status FOOT (MINIMUM 3 VIEWS) Stat Exams 08/31/23 16:38 Completed - Progress Progress: improved Progress Note: 62-year-old female presents to our ED for evaluation of left foot pain. Patient has tenderness to the dorsum aspect of her left foot. Patient states the pain is at an area adjacent to the strap of her shoe. 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 Patient is on her feet for prolonged periods of time walking on concrete floors. No blunt trauma. No fever. No nausea vomiting or diaphoresis. Patient has no systemic manifestations. She voices no other complaints or concerns at this time. It appears patient's foot has a contusion to the dorsal aspect. Patient given a postop shoe. Referral to orthopedic clinic was provided as well. Patient declined pain medication. Portions of this note were created with voice recognition technology. There may be grammatical, spelling, punctuation or sound alike errors Complexity of problem addressed is low acute uncomplicated No critical care time Complexity of data reviewed and analyzed is moderate. Test ordered test reviewed results analyzed and correlated clinically with history and physical examination. Risk of complication and or risk of morbidity/mortality of patient management is low Vital stable. Time spent to discharge patient is approximately 20 minutes. Plan of care established for shared decision making. Patient voices no other complaints or concerns at this time 08/31/23 17:52 Counseled pt/family regarding: diagnosis, need for follow-up, rad results - Departure Departure Disposition: Home Clinical Impression: Heel spur, Osteopenia, Foot contusion Condition: Stable Critical Care Time: No Referrals: ASHVIN CARVALHO MD [Primary Care Provider] - Follow up/PCP as directed Additional Instructions: Discharge/Care Plan CORRIE PALUMBO was seen on 08/31/23 in the Emergency Room. The patient was counseled regarding Diagnosis,Lab results, Imaging studies, need for follow up and when to return to the Emergency Room. Prescriptions given: Discharge Note I have spoken with the patient and/or caregivers. I have explained the patient's condition, diagnosis and treatment plan based on the information available to me at this time. I have answered the patient's and/or caregiver's questions and addressed any concerns. The patient and/or caregivers have as good understanding of the patient's diagnosis, condition and treatment plan as can be expected at this point. The vital signs have been stable. The patient's condition is stable and appropriate for discharge from the emergency department. The patient will pursue further outpatient evaluation with the primary care physician or other designated or consulting physician as outlined in the discharge instructions. The patient and/or caregivers are agreeable to this plan of care and follow-up instructions have been explained in detail. The patient and/or caregivers have received these instruction. The patient/and or caregivers are aware that any significant change in condition or worsening of symptoms should prompt an immediate return to this or the closest emergency department or call 911. Outpatient Orders: Ortho Referral Time Frame: 1 Day, Facility: [facility]. Hosp, Location: ORTHO CLINIC
[2023-08-31 17:50] VITALS: BP 165/73; PULSE 88
[2023-08-31 17:55] VITALS: O2SAT 97
== END 2023-08-31 17:57 | disposition home or self-care (01) ==
LOC: ED 15:39
DX: M77.32 Calcaneal spur, left foot (principal); M85.872 Other specified disorders of bone density and structure, left ankle and foot; S90.32XA Contusion of left foot, initial encounter; W49.09XA Other specified item causing external constriction, initial encounter; Z79.891 Long term (current) use of opiate analgesic; Z79.899 Other long term (current) drug therapy; Z28.310 Unvaccinated for COVID-19
CPT/HCPCS: 73630; 99283

== ENCOUNTER 2023-10-13 09:31 | Day surgery (SDC) | payer MEDICARE ==
[2023-10-13] MEDS ORDERED: LIDOCAINE HCL 1% 50 MG/5 ML VL PF IJ ONE (09:32)
[2023-10-13] MEDS ORDERED: Depo-Medrol 40 MG/ML IM ONE (09:32)
[2023-10-13] MEDS ORDERED: BUPIVACAINE 0.5% VIAL IJ ONE (09:32)
[2023-10-13] MEDS ORDERED: DIPRIVAN 200 MG/20 ML IV ONE (13:37)
[2023-10-13] MEDS ORDERED: Xylocaine-Mpf 2% 5 Ml Vial ONE (13:38)
[2023-10-13] MEDS ORDERED: Lactated Ringers 1,000 ML IV ONE (15:03)
--- NOTE | 2023-10-13 15:15 | XRAY ---
Indication: Bilateral SI joint injection. Intraoperative fluoroscopy provided for 21 seconds. 4 digital spot images submitted for interpretation demonstrates posterior needle tip projecting over the left and right SI joint. Correlate with intraoperative findings/report.
--- NOTE | 2023-10-13 16:46 | XRAY ---
21 seconds of fluoroscopy was used in surgery for a bilateral sacroiliac injection.
== END 2023-10-13 16:10 | disposition home or self-care (01) ==
LOC: SDC-PAIN 09:31
PROVIDERS: ATTEND Psychiatry & Neurology Pain Medicine
DX: M46.1 Sacroiliitis, not elsewhere classified (principal); M79.18 Myalgia, other site
CPT/HCPCS: 01992; 20553; 27096; 72202; 77002; G0260; J1030; J2001; J2704

== ENCOUNTER 2024-04-19 13:58 | Emergency (ER) | payer MEDICARE ==
[2024-04-19 14:13] VITALS: TEMP 97.5
[2024-04-19] MEDS ORDERED: Ativan 2 MG/1 ML VIAL ONE (14:38)
[2024-04-19] MEDS ORDERED: Sodium Chloride 0.9% 1000 ML 1,000 ML ONE (14:38)
[2024-04-19] MEDS: Sodium Chloride 0.9% 1000 ML 1,000 ML IV STA (14:39)
[2024-04-19] MEDS: Ativan 2 MG/1 ML VIAL IV ONE (14:40)
[2024-04-19 14:48] LABS: Absolute Neutrophil Ct (ANC) 5.99 x10^3/uL (1.56-6.13); BASOPHIL % 0.1 % (0.1-1.2); Basophil (Absolute #) 0.01 x10^3/uL (0.01-0.08); Eosinophil % 0.1 % (0.7-5.8); Eosinophil (Absolute #) 0.01 x10^3/uL (0.04-0.36); Hematocrit 32.7 % (34.1-44.9); IMMATURE GRAN # 0.05 x10^3u/L (0.001-0.031); IMMATURE GRAN % 0.6 % (0.001-0.429); Lymphocytes % 24.1 % (19.3-51.7); Mean Cell Volume 88.4 fL (79.4-94.8); Mean Corpuscular Hemoglobin 29.7 pg (25.6-32.2); Mean Corpuscular Hgb Concent. 33.6 g/dL (32.2-35.5); Mean Platelet Volume 9.8 fL (9.4-12.3); Monocyte (Absolute #) 0.56 x10^3/uL (0.24-0.86); Monocytes % 6.4 % (4.7-12.5); Neutrophil % 68.7 % (34.0-71.1); Platelet Count 283 x10^3/uL (182-369); Red Cell Distribution Width 13.2 % (11.7-14.4); White Blood Count 8.7 x10^3/uL (3.98-10.04)
[2024-04-19 15:11] LABS: ALBUMIN 4.3 g/dL (3.5-5.0); ANION GAP 16.6 MEQ/L (5-15); BILIRUBIN,TOTAL 0.4 mg/dL (0.2-1.3); Calcium 9.4 mg/dL (8.4-10.2); Creatinine 1 1.01 mg/dL (0.52-1.04); EST GLOMERULAR FILTRATION RATE 62.6 ML/MIN; MAGNESIUM 1.9 mg/dL (1.6-2.3); Potassium 3.5 mmol/L (3.5-5.1); Total Protein 6.8 g/dL (6.3-8.2)
--- NOTE | 2024-04-19 15:27 | XRAY ---
CLINICAL HISTORY: sob COMPARISON: None. TECHNIQUE: X-ray of the chest was performed in portable AP view FINDINGS: Cardiac size cannot be accurately assessed in AP projection, however appeared within normal limits Normal hilar shadows. Mild prominence of perihilar bronchovascular markings probably due to pulmonary vascular congestion. Faint linear shadowing is seen in the left lower lobe retrocardiac region. Atelectatic changes are seen in the left lower zone. No evidence of pleural effusion or pneumothorax. Obliteration of cardiophrenic regions presenting fat pad. Age-indeterminate probably old fracture of the right fifth rib posteriorly. IMPRESSION: Mild prominence of perihilar bronchovascular markings probably due to pulmonary vascular congestion. Faint linear shadowing seen in the left lower lobe retrocardiac region, possible underlying inflammatory infiltrates cannot be excluded. Clinical correlation and follow-up is suggested. Electronically Signed by: Hector Robbins MD. (04/19/2024 15:23:47 EDT)
[2024-04-19] MEDS: Requip 0.5 MG PO ONE (17:12)
--- NOTE | 2024-04-19 17:23 | XRAY ---
CLINICAL HISTORY: Shortness of breath, PE protocol COMPARISON: None. TECHNIQUE: Spiral axial continuous cuts were taken through the chest with multiplanar reformatting and with contrast 80 ml isovue 370 mg/ml administration. One of the following dose-reduction techniques was utilized for this exam. Automated exposure control, adjustment of the mA and/or kV according to patient size, and use of iterative reconstruction. FINDINGS: Bilateral basal coarse interstitium and peribronchial thickening. No evidence of nodules, masses or consolidation. The vascular pattern appears normal with no evidence of bronchovascular distortion. No significant hilar or mediastinal lymph lacy enlargement. Mild cardiomegaly with left atrioventricular predominance. No pericardial effusion. Normal appearance of the aorta and pulmonary artery. The visualized pleural sacs, chest wall and axillary spaces display normal appearance. Bone window settings showed no evidence of destructive bony lesions. Scanned upper abdominal cuts are unremarkable. IMPRESSION: Basal senile lung changes and peribronchial thickening, otherwise unremarkable study. Electronically Signed by: Hector Robbins MD. (04/19/2024 17:19:00 EDT)
--- NOTE | 2024-04-19 18:08 | ERPHSYRPT ---
- History of Present Illness Time Seen by Provider: 04/19/24 14:02 Source: patient Exam Limitations: no limitations Patient Subjective Stated Complaint: pt states she is short of breath Triage Nursing Assessment: pt came into the er via wheelchair; pt transfer self to cot; pt is axo x3; c/o SOB; pt states muscle twitching; pt is thrashing around the bed; theatrical movement and gestures when talking; clear lung sounds in all lobes; no cough present during assessment; skin PDW; pt states SOB but no respiratory distress present; vitals wnl Physician History: 63 years old female with history of anxiety/depression/COPD presented to the ER with 1 month history of worsening shortness of breath. Patient reports getting short of breath even sitting and sometimes with exertion. Recently her psychiatric medications are changed and her symptoms started to get worse. Patient reports she feels anxious as if she is not able to catch her breath. Patient is very anxious on presentation, hyperventilating. Saturation around 99%, no tachycardia. Denies any chest pain. No extremity swellings. Denies any fever or chills. Has finished course of steroids and was seen yesterday by primary care where she received steroid shot and currently on antibiotics. Patient reports it seems as everything is closing on her. She was also taking Klonopin which has been stopped. Allergies/Adverse Reactions: minocycline Allergy (Verified 04/19/24 14:00) Home Medications: Lansoprazole [Prevacid 24Hr] 30 tab PO DAILY 12/23/15 [History] Cetirizine HCl [Zyrtec] 10 mg PO DAILY PRN PRN 06/11/16 [History] Hydrocodone/APAP 10/325 mg [[place] 10/325 MG Tablet] 1 tab PO Q8HPRN PRN 06/11/16 [History] Quetiapine Fumarate 25 mg [Seroquel 25 MG] 100 mg PO HS 06/11/16 [History] Ropinirole HCl 1 mg PO HS 06/11/16 [History] Celecoxib [Celebrex] 200 mg PO DAILY 11/09/17 [History] Levothyroxine Sodium 50 mcg PO DAILY 06/02/19 [History] Albuterol Sulfate [Albuterol Sulfate Hfa] 8.5 gm IH DAILY 01/01/23 [History] Desipramine HCl 10 mg PO DAILY 01/01/23 [History] Fluoxetine HCl 20 mg [Prozac 20 MG] 20 mg PO DAILY 01/01/23 [History] Hydroxyzine HCl 25 mg [Atarax 25 mg] 25 mg PO DAILY 01/01/23 [History] Levocetirizine Dihydrochloride 5 mg PO DAILY 01/01/23 [History] Hx Tetanus, Diphtheria Vaccination/Date Given: Yes Hx Influenza Vaccination/Date Given: Yes Hx Pneumococcal Vaccination/Date Given: No Travel Risk - International Travel Have you traveled outside of the country in past 3 weeks: No - Emerging Infectious Disease Are you exhibiting symptoms associated with any current EIDs: Yes Symptoms: Shortness of Breath - Review of Systems Constitutional: No Symptoms Eyes: No Symptoms Ears, Nose, & Throat: No Symptoms Respiratory: Dyspnea Cardiac: Palpitations Abdominal/Gastrointestinal: No Symptoms Genitourinary Symptoms: No Symptoms Musculoskeletal: No Symptoms Skin: No Symptoms Neurological: No Symptoms Psychological: Anxiety, Depression Endocrine: No Symptoms Hematologic/Lymphatic: No Symptoms Immunological/Allergic: No Symptoms - Past Medical History Pertinent Past Medical History: Yes Neurological History: No Pertinent History ENT History: No Pertinent History Cardiac History: No Pertinent History Respiratory History: No Pertinent History Endocrine Medical History: Hypothyroidism Musculoskeletal History: Fibromyalgia, Osteoarthritis, Osteoporosis GI Medical History: Colitis, GERD, Irritable Bowel History: No Pertinent History Psycho-Social History: Anxiety, Bipolar, Depression Female Reproductive Disorders: No Pertinent History Other Medical History: "ALOT OF STOMACH PROBLEMS" - Past Surgical History Past Surgical History: Yes Neuro Surgical History: No Pertinent History Cardiac: No Pertinent History Respiratory: No Pertinent History Gastrointestinal: Appendectomy, Cholecystectomy Genitourinary: No Pertinent History Musculoskeletal: No Pertinent History Female Surgical History: Hysterectomy Other Surgical History: tonsils - Social History Smoking Status: Never smoker Exposure to second hand smoke: No Drug Use: none Patient Lives Alone: Yes - Social Determinants of Health Will the patient participate in the screening: Yes Do you worry about a steady place to live?: No Do you have any problems with any of the following?: No known problems In the past 12 months,have you had to go without utilities?: No Transportation Issues: No Has anyone in your support network made you feel unsafe?: No Have you or anyone in your house had to go without enough: No - Nursing Vital Signs Nursing Vital Signs: Initial Vital Signs Pulse Rate 90 04/19/24 14:00 Respiratory Rate 21 04/19/24 14:00 Blood Pressure 131/89 04/19/24 14:00 O2 Sat by Pulse Oximetry 98 04/19/24 14:00 Pain Scale Pain Intensity 0 - Physical Exam General Appearance: no apparent distress, alert, anxiety Eye Exam: PERRL/EOMI, eyes nml inspection Ears, Nose, Throat Exam: hearing grossly normal, normal ENT inspection, normal pharynx Neck Exam: normal inspection, non-tender, supple, full range of motion Respiratory Exam: normal breath sounds, accessory muscle use Cardiovascular/Chest Exam: normal heart sounds, regular rate/rhythm Abdominal/Gastrointestinal Exam: soft, normal bowel sounds, tenderness, di stention Extremity Exam: non-tender, normal range of motion Neurologic Exam: alert, oriented x 3, cooperative, comprehensive advisor II-XII nml as tested Skin Exam: normal color SpO2 Interpretation: normal SpO2: 98 O2 Delivery: Room Air - Course EKG Interpreted by Me: RATE ([id number]), Sinus Rhythm, NORMAL AXIS, NORMAL INTERVALS, Non-specific ST Changes, Other (Nonspecific T wave changes) Ordered Tests: Active Orders 24 hr Category Date Time Status Engine Turner STAT Care 04/19/24 14:34 Active EKG-ER Only STAT Care 04/19/24 14:33 Active IV Insertion STAT Care 04/19/24 14:33 Active CHEST 1 VIEW (PORTABLE) Stat Exams 04/19/24 14:34 Completed CHEST WITH CONTRAST [CT] Stat Exams 04/19/24 16:04 Completed CBC W DIFF Stat Lab 04/19/24 14:33 Completed CMP Stat Lab 04/19/24 14:05 Completed D-DIMER QUANTITATIVE Stat Lab 04/19/24 15:33 Completed Lactic Acid Stat Lab 04/19/24 14:38 Completed Lactic Acid Stat Lab 04/19/24 16:43 Completed MAGNESIUM Stat Lab 04/19/24 14:05 Completed NT PRO BNPII Stat Lab 04/19/24 14:05 Completed TROPONIN Q4H Lab 04/19/24 14:05 Completed TROPONIN Q4H Lab 04/19/24 16:50 Completed TROPONIN Q4H Lab 04/19/24 22:45 Ordered Medication Summary Discontinued Medications Generic Name Dose Route Start Last Admin Trade Name Freq PRN Reason Stop Dose Admin Sodium Chloride 1,000 mls @ 999 mls/hr 04/19/24 14:37 04/19/24 15:44 Sodium Chloride 0.9% 1000 Ml IV 04/19/24 15:37 Infused .Q1H1M STA Infusion Sodium Chloride Confirm 04/19/24 14:38 Sodium Chloride 0.9% 1000 Ml Administered 04/19/24 14:39 Dose 1,000 mls @ ud .ROUTE .STK-MED ONE Lorazepam 1 mg 04/19/24 14:34 04/19/24 14:40 Lorazepam 2 Mg/1 Ml 2 Mg Vial IV 04/19/24 14:35 1 mg STAT ONE Administration Lorazepam Confirm 04/19/24 14:38 Lorazepam 2 Mg/1 Ml 2 Mg Vial Administered 04/19/24 14:39 Dose 2 mg .ROUTE .STK-MED ONE Ropinirole HCl 0.25 mg 04/19/24 16:53 04/19/24 17:12 Ropinirole Hcl 0.5 Mg Tablet PO 04/19/24 16:54 0.25 mg NOW ONE Administration Lab/Rad Data: Laboratory Result Diagrams 04/19/24 14:33 04/19/24 14:05 Laboratory Results 04/19/24 04/19/24 04/19/24 Range/Units 16:50 16:43 15:33 WBC (3.98-10.04) x10^3/uL RBC (3.93-5.22) x10^6/uL Hgb (11.2-15.7) g/dL Hct (34.1-44.9) % MCV (79.4-94.8) fL MCH (25.6-32.2) pg MCHC (32.2-35.5) g/dL RDW (11.7-14.4) % Plt Count (182-369) x10^3/uL MPV (9.4-12.3) fL Gran % (34.0-71.1) % Immature Gran % (Auto) (0.001-0.429) % Nucleat RBC Rel Count (0.00-0.2) % Eos # (Auto) (0.04-0.36) x10^3/uL Immature Gran # (Auto) (0.001-0.031) x10^3u/L Absolute Lymphs (auto) (1.18-3.74) x10^3/uL Absolute Monos (auto) (0.24-0.86) x10^3/uL Absolute Nucleated RBC (0.00-0.012) x10^3u/L Lymphocytes % (19.3-51.7) % Monocytes % (4.7-12.5) % Eosinophils % (0.7-5.8) % Basophils % (0.1-1.2) % Absolute Granulocytes (1.56-6.13) x10^3/uL Basophils # (0.01-0.08) x10^3/uL D-Dimer < 0.19 (0.0-0.50) mg/L Sodium (135-145) mmol/L Potassium (3.5-5.1) mmol/L Chloride (98-107) mmol/L Carbon Dioxide (22-30) mmol/L Anion Gap (5-15) MEQ/L BUN (7-17) mg/dL Creatinine (0.52-1.04) mg/dL Estimated GFR ML/MIN Glucose (74-106) mg/dL Lactic Acid 0.8 (0.4-2.0) Calcium (8.4-10.2) mg/dL Magnesium (1.6-2.3) mg/dL Total Bilirubin (0.2-1.3) mg/dL AST (14-36) U/L ALT (0-35) U/L Alkaline Phosphatase (38-126) U/L Troponin I < 0.012 (0.000-0.033) ng/mL NT-Pro-B Natriuret Pep (<300) pg/mL Serum Total Protein (6.3-8.2) g/dL Albumin (3.5-5.0) g/dL 04/19/24 04/19/24 04/19/24 Range/Units 14:38 14:33 14:05 WBC 8.7 (3.98-10.04) x10^3/uL RBC 3.70 L (3.93-5.22) x10^6/uL Hgb 11.0 L (11.2-15.7) g/dL Hct 32.7 L (34.1-44.9) % MCV 88.4 (79.4-94.8) fL MCH 29.7 (25.6-32.2) pg MCHC 33.6 (32.2-35.5) g/dL RDW 13.2 (11.7-14.4) % Plt Count 283 (182-369) x10^3/uL MPV 9.8 (9.4-12.3) fL Gran % 68.7 (34.0-71.1) % Immature Gran % (Auto) 0.6 H (0.001-0.429) % Nucleat RBC Rel Count 0.0 (0.00-0.2) % Eos # (Auto) 0.01 L (0.04-0.36) x10^3/uL Immature Gran # (Auto) 0.05 H (0.001-0.031) x10^3u/L Absolute Lymphs (auto) 2.10 (1.18-3.74) x10^3/uL Absolute Monos (auto) 0.56 (0.24-0.86) x10^3/uL Absolute Nucleated RBC 0.00 (0.00-0.012) x10^3u/L Lymphocytes % 24.1 (19.3-51.7) % Monocytes % 6.4 (4.7-12.5) % Eosinophils % 0.1 L (0.7-5.8) % Basophils % 0.1 (0.1-1.2) % Absolute Granulocytes 5.99 (1.56-6.13) x10^3/uL Basophils # 0.01 (0.01-0.08) x10^3/uL D-Dimer (0.0-0.50) mg/L Sodium (135-145) mmol/L Potassium (3.5-5.1) mmol/L Chloride (98-107) mmol/L Carbon Dioxide (22-30) mmol/L Anion Gap (5-15) MEQ/L BUN (7-17) mg/dL Creatinine (0.52-1.04) mg/dL Estimated GFR ML/MIN Glucose (74-106) mg/dL Lactic Acid 3.4 H (0.4-2.0) Calcium (8.4-10.2) mg/dL Magnesium (1.6-2.3) mg/dL Total Bilirubin (0.2-1.3) mg/dL AST (14-36) U/L ALT (0-35) U/L Alkaline Phosphatase (38-126) U/L Troponin I < 0.012 (0.000-0.033) ng/mL NT-Pro-B Natriuret Pep (<300) pg/mL Serum Total Protein (6.3-8.2) g/dL Albumin (3.5-5.0) g/dL 04/19/24 Range/Units 14:05 WBC (3.98-10.04) x10^3/uL RBC (3.93-5.22) x10^6/uL Hgb (11.2-15.7) g/dL Hct (34.1-44.9) % MCV (79.4-94.8) fL MCH (25.6-32.2) pg MCHC (32.2-35.5) g/dL RDW (11.7-14.4) % Plt Count (182-369) x10^3/uL MPV (9.4-12.3) fL Gran % (34.0-71.1) % Immature Gran % (Auto) (0.001-0.429) % Nucleat RBC Rel Count (0.00-0.2) % Eos # (Auto) (0.04-0.36) x10^3/uL Immature Gran # (Auto) (0.001-0.031) x10^3u/L Absolute Lymphs (auto) (1.18-3.74) x10^3/uL Absolute Monos (auto) (0.24-0.86) x10^3/uL Absolute Nucleated RBC (0.00-0.012) x10^3u/L Lymphocytes % (19.3-51.7) % Monocytes % (4.7-12.5) % Eosinophils % (0.7-5.8) % Basophils % (0.1-1.2) % Absolute Granulocytes (1.56-6.13) x10^3/uL Basophils # (0.01-0.08) x10^3/uL D-Dimer (0.0-0.50) mg/L Sodium 139 (135-145) mmol/L Potassium 3.5 (3.5-5.1) mmol/L Chloride 105 (98-107) mmol/L Carbon Dioxide 21 L (22-30) mmol/L Anion Gap 16.6 H (5-15) MEQ/L BUN 15 (7-17) mg/dL Creatinine 1.01 (0.52-1.04) mg/dL Estimated GFR 62.6 ML/MIN Glucose 105 (74-106) mg/dL Lactic Acid (0.4-2.0) Calcium 9.4 (8.4-10.2) mg/dL Magnesium 1.9 (1.6-2.3) mg/dL Total Bilirubin 0.40 (0.2-1.3) mg/dL AST 34 (14-36) U/L ALT 34 (0-35) U/L Alkaline Phosphatase 79 (38-126) U/L Troponin I (0.000-0.033) ng/mL NT-Pro-B Natriuret Pep 657 (<300) pg/mL Serum Total Protein 6.8 (6.3-8.2) g/dL Albumin 4.3 (3.5-5.0) g/dL - Progress Progress: improved, re-examined Air Movement: good Progress Note: 04/19/24 18:03 63 years old female with history of anxiety depression, COPD is evaluated the ER for worsening shortness of breath and anxiety symptoms for almost a month. Patient symptoms started after she has been switched to a different anxiety and depression medications by her psychiatrist. She has finished steroids and was evaluated yesterday at primary care office, given a steroid shot and placed on antibiotics. Patient was very anxious, hyperventilating but lungs clear to auscultation. Not hypoxic or tachycardic. Given Ativan IV and her symptoms improved. She is not in any distress anymore. Workup showed normal white count, chemistries fairly unremarkable except for initial lactate of 3.4, given fluid bolus and it improved on recheck 2.8. Troponin negative x 2. Normal BNP and patient clinically does not seem to be in CHF at all. Chest x-ray showed questionable congestion versus infiltrate. Obtained CTA chest which is negative for pulmonary embolism, no focal consolidation but does have peribronchial thickening which seems to be reactive and I would give her few days worth of steroids to go home. Recommended continue with inhaler and patient does have appointment with psych in the morning which she is encouraged to keep. Patient is not suicidal or homicidal at all. On reevaluation she is not in distress at all, much calm. I believe patient's symptoms are her combination of COPD/anxiety. Recommended continue with hydroxyzine which she has at home. Discussed signs symptoms of worsening needing return to ER which she seems understanding. Stable for discharge. Blood Culture(s) Obtained: No Antibiotics given: No Counseled pt/family regarding: lab results, diagnosis, need for follow-up, rad results Medical Desision Making - Independent Historian Additional History obtained from: Relative/friend - Diagnostic Testing Diagnostic test were ordered, analyzed, and reviewed by me: Yes Radiological Interpretation: Reviewed by me, Teleradiologist Report - Risk of complications The pt has a mod risk of morbidity or mortality based on: Need for prescription drug management - Departure Departure Disposition: Home Clinical Impression: Anxiety, COPD with exacerbation Condition: Stable Critical Care Time: No Referrals: ASHVIN CARVALHO MD [Primary Care Provider] - Follow up with PCP 1 day Instructions: Chronic Obstructive Pulmonary Disease, Exacerbation of COPD (DC), Anxiety, Adult ED Prescriptions: Prednisone 20 mg [Deltasone 20 mg] 40 mg PO DAILY 5 Days #10 tablet
[2024-04-19 18:41] VITALS: BP 148/85; PULSE 84; RESP 16; O2SAT 97
== END 2024-04-19 18:57 | disposition home or self-care (01) ==
LOC: ED 13:58
DX: J44.1 Chronic obstructive pulmonary disease with (acute) exacerbation (principal); R06.02 Shortness of breath; F41.9 Anxiety disorder, unspecified; Z79.899 Other long term (current) drug therapy
CPT/HCPCS: 36000; 36415; 71045; 71260; 80053; 83605; 83735; 83880; 84484; 85025; 85379; 93005; 93041; 96374; 99284; J2060; A9270-GY

== ENCOUNTER 2024-05-10 06:47 | Day surgery (SDC) | payer MEDICARE | END 2024-05-10 08:00 | disposition home or self-care (01) | LOC: SDC-PAIN 06:47 | PROVIDERS: ATTEND Psychiatry & Neurology Pain Medicine | DX: Z53.8 Procedure and treatment not carried out for other reasons (principal) ==

== ENCOUNTER 2024-05-17 12:21 | Day surgery (SDC) | payer MEDICARE ==
[2024-05-17] MEDS ORDERED: Decadron 4 MG INJ IV ONE (12:22)
[2024-05-17] MEDS ORDERED: Depo-Medrol 40 MG/ML IM ONE (12:22)
[2024-05-17] MEDS ORDERED: LIDOCAINE HCL 1% AMPUL 5 ML IJ ONE (12:22)
[2024-05-17] MEDS ORDERED: BUPIVACAINE 0.5% VIAL IJ ONE (12:22)
[2024-05-17] MEDS ORDERED: DIPRIVAN 200 MG/20 ML IV ONE (14:17)
[2024-05-17] MEDS ORDERED: Xylocaine-Mpf 2% 5 Ml Vial ONE (14:18)
--- NOTE | 2024-05-17 16:33 | XRAY ---
Indication: Bilateral SI joint and piriformis injection. Intraoperative fluoroscopy provided for 1 minute 6 seconds. 4 digital spot images submitted for interpretation demonstrates posterior needle tips projecting over the expected left/right SI joints and left/right piriformis. Small amount of contrast injected for all needle tip placement. Correlate with intraoperative findings/report.
--- NOTE | 2024-05-17 16:56 | XRAY ---
One minute and 6 seconds of fluoroscopy was used in surgery for a bilateral sacroiliac joint and piriformis injection.
== END 2024-05-17 14:55 | disposition home or self-care (01) ==
LOC: SDC-PAIN 12:21
PROVIDERS: ATTEND Psychiatry & Neurology Pain Medicine
DX: M46.1 Sacroiliitis, not elsewhere classified (principal); M79.18 Myalgia, other site
CPT/HCPCS: 01992; 20553; 27096; 72202; 77002; G0260; J1100; J2704; Q9966